=== PATIENT | male | born 1950 | race Caucasian/White ===

== ENCOUNTER 2016-06-22 14:14 | Observation (INO) | payer MEDICARE ==
[~2016-06-22 14:14] MED LIST: AMLO5TAB2 PO; AMLO5TAB22 PO; ASPI81 CHEW; ASPI81CH CHEW; HYDR-2768 PO; HYDR25TA5 PO; LEVI20TA PO; LORA-474 PO; LORA10TA PO; MULT-65 PO; MULTTAB67 PO; PRAV20 PO; PRAV20TA2 PO; WAL-10TA2 PO; WELL200T PO
[2016-06-22 14:18] VITALS: BP 148/84; PULSE 65; RESP 12; TEMP 98.6; O2SAT 65; O2SAT 95
[2016-06-22 15:30] VITALS: RESP 16; O2SAT 94
[2016-06-22] MEDS ORDERED: ASPIRIN 81 MG CHEW TAB PO ONE (15:30)
[2016-06-22] MEDS ORDERED: SODIUM CHLORIDE 0.9% FLUSH 5 ML FLUSH IVF PRN (15:30)
[2016-06-22 16:01] LABS: AUTOMATED NEUTROPHIL # 5.3 TH/MM3 (1.8-7.7); BASOPHIL # 0.1 TH/MM3 (0-0.2); BASOPHIL % 0.6 % (0.0-2.0); EOSINOPHIL # 0.7 TH/MM3 (0-0.4); EOSINOPHIL % 7.2 % (0.0-4.0); HEMATOCRIT 43.9 % (39.0-51.0); HEMO FLAGS DIFF FINAL; LYMPH % 24.8 % (9.0-44.0); LYMPHOCYTE # 2.3 TH/MM3 (1.0-4.8); MEAN CELL VOLUME 88.8 FL (80.0-100.0); MEAN CORPUSCULAR HGB CONC 33.8 % (32.0-36.0); MONO % 9.3 % (0.0-8.0); NEUT % 58.1 % (16.0-70.0); PLATELET COUNT 251 TH/MM3 (150-450); RED BLOOD COUNT 4.95 MIL/MM3 (4.50-5.90); RED CELL DISTRIBUTION WIDTH 14.3 % (11.6-17.2); WHITE BLOOD COUNT 9.1 TH/MM3 (4.0-11.0)
--- NOTE | 2016-06-22 16:07 | RADRPT ---
EXAM DATE/TIME: 06/22/2016 15:26 [facility] COMPARISON: No previous studies available for comparison. INDICATIONS : Chest pain. MEDICAL HISTORY : Hypertension. SURGICAL HISTORY : None. ENCOUNTER: Initial ACUITY: 2 months PAIN SCORE: 8/10 LOCATION: Bilateral chest FINDINGS: A single view of the chest demonstrates the lungs to be symmetrically aerated without evidence of mas s, infiltrate or effusion. The cardiomediastinal contours are unremarkable. Osseous structures are intact. CONCLUSION: No acute disease. Timur Hwang MD on June 22, 2016 at 16:05 Board Certified Radiologist. This report was verified electronically.
[2016-06-22 16:10] LABS: APTT (PATIENT) 24.8 SEC (24.3-30.1); INTERNATIONAL NORMALIZED RATIO 0.9 RATIO
[2016-06-22 16:17] VITALS: BP 143/65; PULSE 60; RESP 18; O2SAT 98
[2016-06-22 16:26] LABS: ANION GAP 8 MEQ/L (5-15); BICARBONATE 26.7 MEQ/L (21.0-32.0); BLOOD UREA NITROGEN 20 MG/DL (7-18); CHLORIDE 104 MEQ/L (98-107); GLOMERULAR FILTRATION RATE 80 ML/MIN (>89); MAGNESIUM 2.4 MG/DL (1.5-2.5); POTASSIUM 3.8 MEQ/L (3.5-5.1); SODIUM (NA) 139 MEQ/L (136-145)
[2016-06-22 16:31] LABS: CREATINE KINASE 133 U/L (39-308)
[2016-06-22 16:43] LABS: CKMB 2.3 NG/ML (0.5-3.6)
--- NOTE | 2016-06-22 17:07 | PD ---
HPI Chief Complaint: Chest Pain Time Seen by Provider: 15:05 Travel History International Travel<30 days: No Contact w/Intl Traveler<30days: No Traveled to known affect area: No History of Present Illness HPI 65-year-old male came to the emergency room with history of chest pain on and off with exertion. He was having chest pain this morning while he was mowing his lawn. He went to see his primary care and they sent him to the emergency rule out heart attack. Currently patient is pain-free. Patient says the pain gets better at rest. No history of vomiting. Vital signs were stable. Patient has history of hypertension. [facility] Past Medical History Narrative Medical List of his past medical history as reviewed from the nursing note. High Cholesterol: Yes Hypertension: Yes Sleep Apnea: Yes Tetanus Vaccination: < 5 Years Influenza Vaccination: Yes Past Surgical History Surgical History: No Previous Surgery Social History Alcohol Use: Yes (SOCIAL) Tobacco Use: Yes (CIGAR, PIPE) Substance Use: No Allergies-Medications (Allergen,Severity, Reaction): Coded Allergies: No Known Allergies (Verified , 06/22/16) Comments No known drug allergies. Reported Meds & Prescriptions Reported Meds & Active Scripts Active Reported Wellbutrin SR 12 HR (Bupropion HCl) 200 Mg Tab 200 Mg PO BID Multiple Vitamin 1 Tab 1 Tab PO DAILY Loratadine 10 Mg Tab 10 Mg PO DAILY Aspirin 81 Mg Chew 81 Mg CHEW DAILY Levitra (Vardenafil) 20 Mg Tab 20 Mg PO DAILY PRN Pravastatin 20 Mg Tab 1 Tab PO DAILY Ativan (Lorazepam) 1 Mg Tab 1 Mg PO BID PRN Hydrochlorothiazide 25 Mg Tab 25 Mg PO DAILY Amlodipine (Amlodipine Besylate) 5 Mg Tab 1 Tab PO DAILY Narrative Medication List of his home medications reviewed from the nursing note. Review of Systems Except as stated in HPI: all other systems reviewed are Neg Physical Exam Narrative GENERAL: Awake, alert, obese, anxious, no obvious distress SKIN: Warm and dry. HEAD: Atraumatic. Normocephalic. EYES: Pupils equal and round. No scleral icterus. No injection or drainage. ENT: No nasal bleeding or discharge. Mucous membranes pink and moist. NECK: Trachea midline. No JVD. CARDIOVASCULAR: Regular rate and rhythm. No murmur appreciated. RESPIRATORY: No accessory muscle use. Clear to auscultation. Breath sounds equal bilaterally. GASTROINTESTINAL: Abdomen soft, non-tender, nondistended. Hepatic and splenic margins not palpable. MUSCULOSKELETAL: No obvious deformities. No clubbing. No cyanosis. No edema. NEUROLOGICAL: Awake and alert. No obvious cranial nerve deficits. Motor grossly within normal limits. Normal speech. PSYCHIATRIC: Appropriate mood and affect; insight and judgment normal. Data Data Last Documented VS Vital Signs Date Time Temp Pulse Resp B/P Pulse Ox O2 Delivery O2 Flow Rate FiO2 06/22/16 16:17 60 18 143/65 98 Room Air 06/22/16 15:30 2 06/22/16 14:18 98.6 Orders Electrocardiogram (06/22/16 15:18) Basic Metabolic Panel (Bmp) (06/22/16 15:18) Ckmb (Isoenzyme) Profile (06/22/16 15:18) Complete Blood Count With Diff (06/22/16 15:18) Magnesium (Mg) (06/22/16 15:18) Prothrombin Time / Inr (Pt) (06/22/16 15:18) Act Partial Throm Time (Ptt) (06/22/16 15:18) Troponin I (06/22/16 15:18) Chest, Single Ap (06/22/16 15:18) Ecg Monitoring (06/22/16 15:18) Bilateral Bp Monitoring (06/22/16 15:18) Iv Access Insert/Monitor (06/22/16 15:18) Oximetry (06/22/16 15:18) Oxygen Administration (06/22/16 15:18) Aspirin Chew (Aspirin Chew) (06/22/16 15:30) Sodium Chloride 0.9% Flush (Ns Flush) (06/22/16 15:30) CKMB (06/22/16 15:40) CKMB% (06/22/16 15:40) Admit Order (Ed Use Only) (06/22/16 17:23) Labs Laboratory Tests Test 06/22/16 15:40 White Blood Count 9.1 TH/MM3 Red Blood Count 4.95 MIL/MM3 Hemoglobin 14.8 GM/DL Hematocrit 43.9 % Mean Corpuscular Volume 88.8 FL Mean Corpuscular Hemoglobin 30.0 PG Mean Corpuscular Hemoglobin 33.8 % Concent Red Cell Distribution Width 14.3 % Platelet Count 251 TH/MM3 Mean Platelet Volume 7.2 FL Neutrophils (%) (Auto) 58.1 % Lymphocytes (%) (Auto) 24.8 % Monocytes (%) (Auto) 9.3 % Eosinophils (%) (Auto) 7.2 % Basophils (%) (Auto) 0.6 % Neutrophils # (Auto) 5.3 TH/MM3 Lymphocytes # (Auto) 2.3 TH/MM3 Monocytes # (Auto) 0.8 TH/MM3 Eosinophils # (Auto) 0.7 TH/MM3 Basophils # (Auto) 0.1 TH/MM3 CBC Comment DIFF FINAL Differential Comment Prothrombin Time 10.0 SEC Prothromb Time International 0.9 RATIO Ratio Activated Partial 24.8 SEC Thromboplast Time Sodium Level 139 MEQ/L Potassium Level 3.8 MEQ/L Chloride Level 104 MEQ/L Carbon Dioxide Level 26.7 MEQ/L Anion Gap 8 MEQ/L Blood Urea Nitrogen 20 MG/DL Creatinine 0.94 MG/DL Estimat Glomerular Filtration 80 ML/MIN Rate Random Glucose 98 MG/DL Calcium Level 9.1 MG/DL Magnesium Level 2.4 MG/DL Total Creatine Kinase 133 U/L Creatine Kinase MB 2.3 NG/ML Troponin I LESS THAN 0.02 NG/ML B-Type Natriuretic Peptide 4 PG/ML MDM Medical Decision Making Medical Screen Exam Complete: Yes Emergency Medical Condition: Yes Medical Record Reviewed: Yes Interpretation(s) Twelve-lead EKG was reviewed by me. Normal sinus rhythm, left axis deviation, bradycardia, poor R-wave progression, nonspecific ST-T wave changes. Heart rate of 54 bpm. Differential Diagnosis ACS, non-STEMI, stable angina Narrative Course 5:06 PM blood test results of back and within normal limit. I would like to admit this patient given the classic history for stable angina to be ruled out. Procedures EKG Prior to Arrival: Yes Diagnosis Primary Impression: Stable angina Admitting Information Admitting Physician Requests: Observation Scripts Nitroglycerin SL (Nitrostat SL)0.4 Mg Subl0.4 Mg SL Q5M PRN (ANGINA) #30 CAP Prov:Dolly Álvarez MD 06/23/16 Brennon Bateman MD Jun 22, 2016 17:07
[2016-06-22] MEDS ORDERED: SODIUM CHLORIDE 0.9% FLUSH 5 ML FLUSH IV PRN (18:00)
[2016-06-22] MEDS ORDERED: NITROGLYCERIN 0.4 MG SL 25 TABS/BTL SL PRN (18:00)
--- NOTE | 2016-06-22 18:41 | HHI.HP ---
cc: Jose G Patel Jr., MD [facility] Service [facility] Primary Care Physician Jose G Patel MD Admission Diagnosis chest pain, r/o ACS Diagnoses: Chief Complaint: chest pain Travel History International Travel<30 Days: No Contact w/Intl Traveler <30 Da: No Traveled to Known Affected Are: No History of Present Illness 65-year-old male with history of HTN, HLD, tobacco use, LAMONTE on CPAP, depression , presents with a one-month history of recurrent chest pains. Patient reports over the past month he has been noticing chest pressure located throughout the entire anterior chest without radiation, associated with shortness of breath, no nausea/vomiting/diaphoresis. He experiences the chest pain only with exertion, and has quick recovery with rest after a few minutes. His last episode of chest pain was this morning around 11am while mowing the lawn, recovered after a few minutes of rest. He has not taken any medications for the pain and does not have any nitroglycerin at home (patient also takes Levitra prn erectile dysfunction however last use was 6-8months ago). The patient does report some chronic lower extremity edema, takes HCTZ. Denies any orthopnea or paroxysmal nocturnal dyspnea. Denies cough, fevers, chills. He has a hx of stress test in 2004 that was reportedly unremarkable. He saw his PCP Dr. Patel today who recommended the patient come to the ER for admission to the chest pain center. ER physician admitted to hospitalist instead of chest pain center due to classic stable angina requesting cardiology consult. Initial troponin negative and EKG with sinus bradycardia, left axis deviation, poor R wave progression, nonspecific T wave changes. He will be admitted to observation with cardiology consult. Review of Systems Constitutional: DENIES: Diaphoretic episodes, Fever, Chills, Dizziness Endocrine: DENIES: Polydipsia, Polyuria, Polyphagia Eyes: DENIES: Blurred vision, Vision loss, Double Vision Ears, nose, mouth, throat: DENIES: Throat pain, Ear Pain, Odynophagia Respiratory: COMPLAINS OF: Shortness of breath, DENIES: Cough, Sputum production Cardiovascular: COMPLAINS OF: Chest pain, Dyspnea on Exertion, Lower Extremity Edema, DENIES: Palpitations, Syncope, PND, Orthopnea Gastrointestinal: DENIES: Abdominal pain, Constipation, Diarrhea, Nausea, Vomiting Genitourinary: DENIES: Urinary frequency, Urgency, Dysuria Musculoskeletal: DENIES: Joint pain, Back pain, Neck pain Integumentary: DENIES: Pruritus, Rash Hematologic/lymphatic: DENIES: Bruising, Lymphadenopathy Immunologic/allergic: DENIES: Eczema, Urticaria Neurologic: DENIES: Abnormal gait, Headache, Localized weakness, Paresthesias Psychiatric: DENIES: Anxiety, Depression Past Family Social History Past Medical History HTN HLD LAMONTE on CPAP depression anxiety Past Surgical History Denies any prior surgeries. Reported Medications Wellbutrin SR 12 HR (Bupropion HCl) 200 Mg Tab 200 Mg PO BID Multiple Vitamin 1 Tab 1 Tab PO DAILY Loratadine 10 Mg Tab 10 Mg PO DAILY Aspirin 81 Mg Chew 81 Mg CHEW DAILY Levitra (Vardenafil) 20 Mg Tab 20 Mg PO DAILY PRN (LAST USE 6-8MONTHS AGO) Pravastatin 20 Mg Tab 1 Tab PO DAILY Ativan (Lorazepam) 1 Mg Tab 1 Mg PO BID PRN Hydrochlorothiazide 25 Mg Tab 25 Mg PO DAILY Amlodipine (Amlodipine Besylate) 5 Mg Tab 1 Tab PO DAILY Allergies: Coded Allergies: No Known Allergies (Verified , 06/22/16) Active Ordered Medications Current Medications Medications (Trade) Dose Ordered Sig/Sergio Route Start Time Stop Time Status Last Admin (NS Flush) 2 ml UNSCH PRN IVF 06/22/16 15:30 (NS Flush) 2 ml BID IV 06/22/16 21:00 UNV (NS Flush) 2 ml UNSCH PRN IV 06/22/16 18:00 UNV (Nitrostat Sl) 0.4 mg Q5M PRN SL 06/22/16 18:00 UNV (Morphine Inj) 2 mg Q2H PRN IV 06/22/16 18:00 UNV (Heparin Inj) 5,000 units Q8H SQ 06/22/16 18:00 UNV (Ecotrin Ec) 81 mg DAILY PO 06/23/16 09:00 UNV (Wellbutrin Sr 12 Hr) 200 mg BID PO 06/22/16 21:00 UNV (Hydrodiuril) 25 mg DAILY PO 06/23/16 09:00 UNV (Claritin) 10 mg DAILY PO 06/23/16 09:00 UNV (Ativan) 1 mg BID PRN PO 06/22/16 18:00 UNV (Theragran) 1 tab DAILY PO 06/23/16 09:00 UNV (Pravachol) 20 mg DAILY PO 06/23/16 09:00 06/22/16 21:00 UNV (Norvasc) 5 mg HS PO 06/22/16 21:00 UNV (Pravachol) 20 mg HS PO 06/22/16 21:00 UNV Family History Father with CABG around age 70-75 Mother with cancer, COPD, thyroid disease Social History Smokes 1 pipe of tobacco daily since age 17, occasional cigar use Drinks 1 cocktail per week Denies illicit drug use Physical Exam Vital Signs Vital Signs Date Time Temp Pulse Resp B/P Pulse Ox O2 Delivery O2 Flow Rate FiO2 06/22/16 16:17 60 18 143/65 98 Room Air 06/22/16 15:30 16 94 Nasal Cannula 2 06/22/16 15:30 94 Nasal Cannula 2 06/22/16 15:22 57 18 94 Room Air 06/22/16 14:18 98.6 65 12 148/84 95 Room Air Physical Exam GENERAL: Well-nourished, well-developed very pleasant middle aged male patient in [facility]. SKIN: Warm and dry. No rash. HEAD: Normocephalic. Atraumatic. EYES: Pupils equal and round. No scleral icterus. No injection or drainage. ENT: No nasal bleeding or discharge. Mucous membranes pink and moist. NECK: Supple. Trachea midline. CARDIOVASCULAR: Regular rate and rhythm. S1, S2 noted. No murmur appreciated. RESPIRATORY: No accessory muscle use. Clear to auscultation. Breath sounds equal bilaterally. GASTROINTESTINAL: Abdomen soft, non-tender, nondistended. Normoactive bowel sounds x4. MUSCULOSKELETAL: No obvious deformities. 1+ bilateral lower extremity edema. NEUROLOGICAL: Awake and alert. No obvious cranial nerve deficits. Motor grossly within normal limits. 5/5 muscle strength in bilateral upper and lower extremities. Normal speech. PSYCHIATRIC: Appropriate mood and affect; insight and judgment normal. Laboratory Laboratory Tests Test 06/22/16 15:40 White Blood Count 9.1 Red Blood Count 4.95 Hemoglobin 14.8 Hematocrit 43.9 Mean Corpuscular Volume 88.8 Mean Corpuscular Hemoglobin 30.0 Mean Corpuscular Hemoglobin 33.8 Concent Red Cell Distribution Width 14.3 Platelet Count 251 Mean Platelet Volume 7.2 Neutrophils (%) (Auto) 58.1 Lymphocytes (%) (Auto) 24.8 Monocytes (%) (Auto) 9.3 Eosinophils (%) (Auto) 7.2 Basophils (%) (Auto) 0.6 Neutrophils # (Auto) 5.3 Lymphocytes # (Auto) 2.3 Monocytes # (Auto) 0.8 Eosinophils # (Auto) 0.7 Basophils # (Auto) 0.1 CBC Comment DIFF FINAL Differential Comment Prothrombin Time 10.0 Prothromb Time International 0.9 Ratio Activated Partial 24.8 Thromboplast Time Sodium Level 139 Potassium Level 3.8 Chloride Level 104 Carbon Dioxide Level 26.7 Anion Gap 8 Blood Urea Nitrogen 20 Creatinine 0.94 Estimat Glomerular Filtration 80 Rate Random Glucose 98 Calcium Level 9.1 Magnesium Level 2.4 Total Creatine Kinase 133 Creatine Kinase MB 2.3 Troponin I LESS THAN 0.02 Result Diagram: 06/22/16 1540 06/22/16 1540 Imaging Last Impressions Chest X-Ray 06/22/16 1518 Signed Impressions: Service Date/Time: Wednesday, June 22, 2016 15:26 - CONCLUSION: No acute disease. Timur Hwang MD Assessment and Plan Problem List: (1) Stable angina ICD Code: I20.8 Status: Acute (2) Hypertension ICD Code: I10 Status: Chronic (3) Hyperlipidemia ICD Code: E78.5 Status: Chronic (4) Obesity ICD Code: E66.9 Status: Chronic (5) Depression ICD Code: F32.9 Status: Chronic (6) Smoker ICD Code: F17.200 Status: Chronic Assessment and Plan 65-year-old male with history of HTN, HLD, tobacco use, LAMONTE on CPAP, depression , presents with a one-month history of recurrent chest pains. He saw his PCP Dr. Patel today who recommended the patient come to the ER for admission to the chest pain center. ER physician admitted to hospitalist instead of chest pain center due to classic stable angina, requesting cardiology consult. Stable Angina: patient's symptoms classic for stable angina, chest pressure/SOB only with exertion, relieved by rest; risk factors with HTN/HLD/tobacco use/ family hx. CXR images reviewed by me, unremarkable. Initial troponin negative and EKG with nonspecific T wave changes. Continue to rule out ACS with serial cardiac enzymes and EKG. Given Aspirin in ER. Nitro and IV morphine prn chest pain. Heparin SQ. Unable to have BB due to bradycardia. Consult cardiology. Keep NPO after midnight for likely stress test vs cath in the am. Lower Extremity Edema: suspect dependent edema however with SOB as above, will check BNP. No calf pain. Continue patient's diuretic HCTZ. HTN: chronic, continue patient's Norvasc 5mg hs and HCTZ 25mg qd. Monitor BP, adjust antihypertensives as needed. HLD: chronic, continue patient's statin hs. Check lipid panel in am. LAMONTE on CPAP: patient may continue CPAP. Depression/Anxiety: chronic, continue patient's Wellbutrin bid and Ativan prn. Tobacco Use: patient smokes tobacco via pipe daily [id number]. Counseled on cessation. Avoid vasoconstriction with nicotine patch secondary to chest pain as above. DVT Prophylaxis: teds/SCDs, heparin sq Written by Caryn Noyola, acting as scribe for Dr. Álvarez on 06/22/16 at 18:39. The documentation accurately reflects the work performed [id number] by me Dr. Álvarez on 06/22/16 at 18:39. Code Status Full Code Discussed Condition With Patient, ER Caryn Bell PA-C Jun 22, 2016 18:41 Dolly Álvarez MD Jun 22, 2016 19:42
[2016-06-22] MEDS ORDERED: ONDANSETRON HCL 4 MG/2 ML VIAL IVP PRN (19:00)
[2016-06-22] MEDS ORDERED: ACETAMINOPHEN 325 MG TAB PO PRN (19:00)
[2016-06-22] MEDS ORDERED: MAGNESIUM HYDROXIDE SUSP 30 ML CUP PO PRN (19:00)
[2016-06-22] MEDS ORDERED: DOCUSATE SODIUM 100 MG CAP PO PRN (19:00)
[2016-06-22] MEDS ORDERED: MORPHINE SULFATE 4 MG/ML INJ IV PRN (19:00)
[2016-06-22] MEDS ORDERED: LORazepam 1 MG TAB PO PRN (19:00)
[2016-06-22 19:21] VITALS: BP 145/68; PULSE 60; RESP 18; O2SAT 99
[2016-06-22] MEDS: SODIUM CHLORIDE 0.9% FLUSH 5 ML FLUSH IV SCH (21:00)
[2016-06-22] MEDS: PRAVASTATIN SOD 20 MG TAB PO SCH (21:30)
[2016-06-22] MEDS: amLODIPine BESYLATE 5 MG TAB PO SCH (21:30)
[2016-06-22] MEDS: HEPARIN SODIUM - SQ 10,000 UNITS/ML VIAL SQ SCH (21:31)
[2016-06-22] MEDS: buPROPion HCL 100 MG SUSTAINED RELEASE TAB PO SCH (22:50)
[2016-06-22 23:28] LABS: CREATINE KINASE 120 U/L (39-308)
[2016-06-23] VITALS (9 sets, daily range): BP systolic 124–138; BP diastolic 57–73; PULSE 52–61; RESP 16–20; TEMP 97.9–98.4; O2SAT 93–97
[2016-06-23] MEDS: HEPARIN SODIUM - SQ 10,000 UNITS/ML VIAL SQ SCH ×3 (03:35→22:36)
[2016-06-23 03:40] LABS: AUTOMATED NEUTROPHIL # 4.8 TH/MM3 (1.8-7.7); BASOPHIL % 0.4 % (0.0-2.0); EOSINOPHIL # 0.6 TH/MM3 (0-0.4); EOSINOPHIL % 7.3 % (0.0-4.0); HEMATOCRIT 41.9 % (39.0-51.0); HEMO FLAGS DIFF FINAL; LYMPH % 26.3 % (9.0-44.0); LYMPHOCYTE # 2.3 TH/MM3 (1.0-4.8); MEAN CELL VOLUME 89.5 FL (80.0-100.0); MEAN CORPUSCULAR HGB CONC 33.5 % (32.0-36.0); MONO % 10.5 % (0.0-8.0); NEUT % 55.5 % (16.0-70.0); PLATELET COUNT 221 TH/MM3 (150-450); RED BLOOD COUNT 4.68 MIL/MM3 (4.50-5.90); RED CELL DISTRIBUTION WIDTH 14.5 % (11.6-17.2); WHITE BLOOD COUNT 8.6 TH/MM3 (4.0-11.0)
[2016-06-23 04:10] LABS: ANION GAP 5 MEQ/L (5-15); BICARBONATE 31.6 MEQ/L (21.0-32.0); BLOOD UREA NITROGEN 24 MG/DL (7-18); CHLORIDE 104 MEQ/L (98-107); GLOMERULAR FILTRATION RATE 72 ML/MIN (>89); SODIUM (NA) 141 MEQ/L (136-145)
[2016-06-23 04:13] LABS: CREATINE KINASE 113 U/L (39-308); HDL CHOLESTEROL 48.2 MG/DL (40.0-60.0); LDL CHOLESTEROL 75 MG/DL (0-99)
--- NOTE | 2016-06-23 08:15 | HHI.PR ---
Subjective Remarks Trops neg. Says he would rather go for exercise stress test as he can walk. No chest pain overnight however the patient says chest pain is with exertion. No diaphoresis, nausea, lightheadedness. Patient also has a cardiac murmur and he has LE edema. Will check 2 D ECHO. Objective Vitals Vital Signs Date Time Temp Pulse Resp B/P Pulse Ox O2 Delivery O2 Flow Rate FiO2 06/23/16 05:35 95 21 06/23/16 04:00 58 16 132/62 96 Nasal Cannula 2 06/23/16 00:00 61 16 124/57 97 06/22/16 19:21 60 18 145/68 99 Room Air 06/22/16 16:17 60 18 143/65 98 Room Air 06/22/16 15:30 16 94 Nasal Cannula 2 06/22/16 15:30 94 Nasal Cannula 2 06/22/16 15:22 57 18 94 Room Air 06/22/16 14:18 98.6 65 12 148/84 95 Room Air Result Diagram: 06/23/16 0325 06/23/16 0325 Imaging Last Impressions Chest X-Ray 06/22/16 1518 Signed Impressions: Service Date/Time: Wednesday, June 22, 2016 15:26 - CONCLUSION: No acute disease. Timur Hwang MD Objective Remarks GENERAL: Well-nourished, well-developed very pleasant middle aged male patient in [facility]. SKIN: Warm and dry. No rash. HEAD: Normocephalic. Atraumatic. EYES: Pupils equal and round. No scleral icterus. No injection or drainage. ENT: No nasal bleeding or discharge. Mucous membranes pink and moist. NECK: Supple. Trachea midline. CARDIOVASCULAR: Regular rate and rhythm. S1, S2 noted. Patient also has a cardiac murmur and he has LE edema. RESPIRATORY: No accessory muscle use. Clear to auscultation. Breath sounds equal bilaterally. GASTROINTESTINAL: Abdomen soft, non-tender, nondistended. Normoactive bowel sounds x4. MUSCULOSKELETAL: No obvious deformities. 1+ bilateral lower extremity edema. NEUROLOGICAL: Awake and alert. No obvious cranial nerve deficits. Motor grossly within normal limits. 5/5 muscle strength in bilateral upper and lower extremities. Normal speech. PSYCHIATRIC: Appropriate mood and affect; insight and judgment normal. A/P Problem List: (1) Stable angina ICD Code: I20.8 Status: Acute (2) Hypertension ICD Code: I10 Status: Chronic (3) Hyperlipidemia ICD Code: E78.5 Status: Chronic (4) Obesity ICD Code: E66.9 Status: Chronic (5) Depression ICD Code: F32.9 Status: Chronic (6) Smoker ICD Code: F17.200 Status: Chronic Assessment and Plan 65-year-old male with history of HTN, HLD, tobacco use, LAMONTE on CPAP, depression , presents with a one-month history of recurrent chest pains. He saw his PCP Dr. Patel today who recommended the patient come to the ER for admission to the chest pain center. ER physician admitted to hospitalist instead of chest pain center due to classic stable angina, requesting cardiology consult. Stable Angina: patient's symptoms classic for stable angina, chest pressure/SOB only with exertion, relieved by rest; risk factors with HTN/HLD/tobacco use/ family hx. CXR images reviewed by me, unremarkable. Initial troponin negative and EKG with nonspecific T wave changes. Continue to rule out ACS with serial cardiac enzymes and EKG. Given Aspirin in ER. Nitro and IV morphine prn chest pain. Heparin SQ. Unable to have BB due to bradycardia. Consult cardiology. Keep NPO after midnight for likely stress test vs cath in the am. Patient also has a cardiac murmur and he has LE edema. Will check 2 D ECHO. Also check CTA to r/o PE per Dr Khan cards. Plan for stress test if CTA neg for PE Trops neg x3 no change in EKG. Patient says he would rather have exercise stress test. Lower Extremity Edema: suspect dependent edema however with SOB as above, will check BNP. No calf pain. Continue patient's diuretic HCTZ. HTN: chronic, continue patient's Norvasc 5mg hs and HCTZ 25mg qd. Monitor BP, adjust antihypertensives as needed. HLD: chronic, continue patient's statin hs. Check lipid panel in am. LAMONTE on CPAP: patient may continue CPAP. Depression/Anxiety: chronic, continue patient's Wellbutrin bid and Ativan prn. Tobacco Use: patient smokes tobacco via pipe daily [id number]. Counseled on cessation. Avoid vasoconstriction with nicotine patch secondary to chest pain as above. DVT Prophylaxis: teds/SCDs, heparin sq Code Status Full Code Discussed Condition With Patient, nurse Dolly Álvarez MD Jun 23, 2016 08:14
[2016-06-23] MEDS ORDERED: ASPIRIN 81 MG CHEW TAB CHEW SCH (09:00)
[2016-06-23] MEDS: LORATADINE 10 MG TAB PO SCH (09:00)
[2016-06-23] MEDS: buPROPion HCL 100 MG SUSTAINED RELEASE TAB PO SCH ×2 (09:00→22:37)
[2016-06-23] MEDS: MULTIVITAMIN TAB PO SCH (09:00)
[2016-06-23] MEDS ORDERED: amLODIPine BESYLATE 5 MG TAB PO SCH (09:00)
[2016-06-23] MEDS ORDERED: PRAVASTATIN SOD 20 MG TAB PO SCH (09:00)
[2016-06-23] MEDS: HYDROCHLOROTHIAZIDE 25 MG TAB PO SCH (09:18)
--- NOTE | 2016-06-23 11:15 | EKG ---
Date Performed: 06/23/2016 Time Performed: 03:55:16 PTAGE: 65 years EKG: SINUS BRADYCARDIA BORDERLINE ECG PREVIOUS TRACING : 06/22/2016 22.58 Compared to prior tracing no significant change DOCTOR: Rio Mera Interpretating Date/Time 06/23/2016 11:15:06
[2016-06-23] MEDS: ASPIRIN EC 81 MG TABEC PO SCH (11:59)
[2016-06-23] MEDS: SODIUM CHLORIDE 0.9% FLUSH 5 ML FLUSH IV SCH ×2 (12:00→22:37)
[2016-06-23] MEDS: ACETAMINOPHEN/HYDROcodone 325 MG/5 MG TAB PO PRN ×2 (14:08→22:45)
[2016-06-23] MEDS ORDERED: IOHEXOL 350 MG/ML 10 ML VIAL (for RAD DIAG) IV ONE ×2 (15:26→16:02)
--- NOTE | 2016-06-23 15:51 | RADRPT ---
EXAM DATE/TIME: 06/23/2016 15:22 [facility] COMPARISON: No previous studies available for comparison. INDICATIONS : Chest pain with exertion IV CONTRAST: 70 cc Omnipaque 350 (iohexol) IV RADIATION DOSE: 23.39 CTDIvol (mGy) MEDICAL HISTORY : Hypertension. SURGICAL HISTORY : None. ENCOUNTER: Initial ACUITY: 1 day PAIN SCALE: 5/10 LOCATION: chest TECHNIQUE: Volumetric scanning of the chest was performed using a pulmonary embolism protocol MIP images were re constructed. Using automated exposure control and adjustment of the mA and/or kV according to patien t size, radiation dose was kept as low as reasonably achievable to obtain optimal diagnostic quality images. FINDINGS: PULMONARY ARTERIES: No filling defects are seen in the pulmonary arteries through the segmental level. LUNGS: Minimal posterior bibasilar atelectasis is noted. There is no consolidation or pneumothorax . No con cerning pulmonary nodule is visualized. PLEURAE: There is no pleural thickening or pleural effusion. MEDIASTINUM: There is good visualization of the great vessels of the middle mediastinum. No evidence of mediastin al or hilar adenopathy/mass. Cardiomegaly is noted. Coronary artery calcifications are noted. MUSCULOSKELETAL: Within normal limits for patient age. MISCELLANEOUS: The visualized upper abdominal organs demonstrate no acute abnormality. There is a 12 mm low density lesion within the right lobe of the liver which is too small for accurate density measurement. CONCLUSION: 1. No evidence of pulmonary embolism. 2. Cardiomegaly and coronary artery calcification. 3. Minimal posterior bibasilar atelectasis. 4. 12 mm low density lesion within the right lobe of the liver which is too small for accurate densit y measurement. Antonio Luna MD on June 23, 2016 at 15:44 Board Certified Radiologist. This report was verified electronically.
[2016-06-23] MEDS ORDERED: NITR0.4S SL (16:25)
--- NOTE | 2016-06-23 16:25 | HHI.DCPOC ---
Discharge Care Plan Goals to Promote Your Health * To prevent worsening of your condition and complications * To maintain your health at the optimal level Directions to Meet Your Goals Take your medications as prescribed Follow your dietary instruction Follow activity as directed Keep your appointments as scheduled Take your immunizations and boosters as scheduled If your symptoms worsen call your PCP, if no PCP go to Urgent Care Center or Emergency Room Smoking is Dangerous to Your Health. Avoid second hand smoke Call the 24-hour hour crisis hotline for domestic abuse at Dolly Álvarez MD Jun 23, 2016 16:25
--- NOTE | 2016-06-23 17:15 | MB ---
cc: RIC LEHMAN M.D. DATE OF CONSULTATION: 06/23/2016 REASON FOR CONSULTATION: HISTORY OF PRESENT ILLNESS: Gary is a very pleasant 65-year-old gentleman referred to the emergency room by his primary doctor due to chest pain occurring while mowing the lawn. His also notes that he has been diagnosed with a heart murmur recently. Also his nurse notes that while off oxygen he has been de-sating 89 to 90% on room air. His chest x-ray was clear. Cardiac enzymes are negative. EKG shows some nonspecific abnormality, ST-T waves in the inferior leads. Currently he is comfortable in no acute distress. Denies any resting chest pain, fever, chills, cough, GI/ bleeding, numbness or dizziness. Past medical history: Per history of present illness. History of hyperlipidemia, hypertension, sleep apnea. SOCIAL HISTORY He does drink alcohol socially. He smokes a cigar and pipe. ALLERGIES: NONE. MEDICATIONS 1. Aspirin 81 mg daily. 2. HCTZ 25 daily. 3. Cardizem 10 milligrams daily. 4. Multivitamins. 5. Amlodipine 5 milligrams hs. 6. Pravastatin 20 hs. 7. Heparin 5000 subcu q8 hours. PHYSICAL EXAMINATION: VITAL SIGNS: Blood pressure 129/67, pulse 55, respiratory rate 18, temperature 98.0. GENERAL: He is alert, oriented x3, in no acute distress. NECK: Supple. No JVD. No bruits. CARDIOVASCULAR: S1-S2. No murmurs, rubs, or gallops. LUNGS: Clear to auscultation bilaterally. ABDOMEN: Soft, nontender, nondistended. Positive bowel sounds. EXTREMITIES: No lower extremity edema. LABORATORY DATA: White count 8.6, hemoglobin 14.0, hematocrit 41.9, platelet count 221. Sodium 141, potassium 4.0, chloride 104, bicarb 31.6, BUN 24, creatinine 1.3. Troponin is less than 0.02 x3. BNP is 4. LDL 75, HDL 48. INR is 0.9. Chest x-ray "No acute disease." EKG: Normal sinus rhythm, Q-wave in lead aVF. Left axis deviation, T-wave inversion in lead 3, flat T-wave in lead aVF, sinus bradycardia at 54. FINAL DIAGNOSIS: 1. [place] [employer] class II angina. 2. Hypoxia 3. Abnormal EKG. 4. Tobacco use. 5. Hyperlipidemia. 6. Hyperglycemia. 7. Hypertension. DISCUSSION At this point in time the patient has unexplained hypoxia. Given his symptoms, I do think PE should be ruled out, therefore, I have ordered CT of the chest. If this is negative for any significant findings, based on his EKG, will proceed with plain exercise treadmill chest. If the patient cannot achieve target heart rate, then we would obviously need to do nuclear stress test. I have discussed this in detail with the patient and his . They are in agreement. Otherwise recommend aspirin, statin, Amlodipine, HCTZ. Will also follow up 2-D echo results. MD DAE Mendieta/CRISTINE /3:03 PM /4:41 PM
--- NOTE | 2016-06-23 22:31 | EKG ---
Date Performed: 06/22/2016 Time Performed: 22:58:48 PTAGE: 65 years EKG: SINUS BRADYCARDIA INFERIOR MYOCARDIAL INFARCTION ABNORMAL ECG PREVIOUS TRACING : 06/22/2016 15.23 Compared to prior tracing no significant change DOCTOR: Rio Mera Interpretating Date/Time 06/23/2016 22:28:28
[2016-06-23] MEDS: PRAVASTATIN SOD 20 MG TAB PO SCH (22:37)
[2016-06-23] MEDS: amLODIPine BESYLATE 5 MG TAB PO SCH (22:37)
--- NOTE | 2016-06-23 22:43 | EKG ---
Date Performed: 06/22/2016 Time Performed: 15:23:13 PTAGE: 65 years EKG: SINUS BRADYCARDIA BORDERLINE ECG NO PREVIOUS TRACING DOCTOR: Rio Mera Interpretating Date/Time 06/23/2016 22:39:46
[2016-06-24 03:27] VITALS: BP 123/61; RESP 20; TEMP 98.7; O2SAT 96
[2016-06-24] MEDS: HEPARIN SODIUM - SQ 10,000 UNITS/ML VIAL SQ SCH ×2 (05:11→12:00)
[2016-06-24 07:33] VITALS: BP 146/71; PULSE 57; RESP 18; TEMP 97.8; O2SAT 94
[2016-06-24 08:00] VITALS: PULSE 55
[2016-06-24] MEDS: HYDROCHLOROTHIAZIDE 25 MG TAB PO SCH (08:28)
[2016-06-24] MEDS: MULTIVITAMIN TAB PO SCH (08:28)
[2016-06-24] MEDS: ASPIRIN EC 81 MG TABEC PO SCH (08:29)
[2016-06-24] MEDS: buPROPion HCL 100 MG SUSTAINED RELEASE TAB PO SCH (08:29)
[2016-06-24] MEDS: LORATADINE 10 MG TAB PO SCH (08:29)
[2016-06-24] MEDS: SODIUM CHLORIDE 0.9% FLUSH 5 ML FLUSH IV SCH (08:29)
[2016-06-24 11:38] VITALS: BP 132/76; PULSE 57; RESP 18; TEMP 97.6; O2SAT 96
--- NOTE | 2016-06-24 13:47 | HHI.PR ---
Subjective Remarks Patient in the chair. Denies having any chest pain. No nausea, vomiting, diarrhea or constipation. Patient/ at bedside wants to have Dr Huffman cardiology. Discussed with Dr Khan cardiology and will consult Dr Huffman for further recommendations. Objective Vitals Vital Signs Date Time Temp Pulse Resp B/P Pulse Ox O2 Delivery O2 Flow Rate FiO2 06/24/16 11:38 97.6 57 18 132/76 96 06/24/16 08:00 55 06/24/16 07:33 97.8 57 18 146/71 94 06/24/16 03:27 98.7 20 123/61 96 06/23/16 23:51 52 06/23/16 23:50 22 06/23/16 23:33 98.4 57 16 129/72 96 06/23/16 20:06 98.4 59 20 138/68 96 06/23/16 16:40 97.9 54 18 134/73 95 Result Diagram: 06/23/16 0325 06/23/16 [address] Angiography 06/23/16 0000 Signed Impressions: Service Date/Time: Thursday, June 23, 2016 15:22 - CONCLUSION: 1. No evidence of pulmonary embolism. 2. Cardiomegaly and coronary artery calcification. 3. Minimal posterior bibasilar atelectasis. 4. 12 mm low density lesion within the right lobe of the liver which is too small for accurate density measurement. Antonio Luna MD Chest X-Ray 06/22/16 1518 Signed Impressions: Service Date/Time: Wednesday, June 22, 2016 15:26 - CONCLUSION: No acute disease. Timur Hwang MD Objective Remarks GENERAL: Well-nourished, well-developed very pleasant middle aged male patient in [facility]. SKIN: Warm and dry. No rash. HEAD: Normocephalic. Atraumatic. EYES: Pupils equal and round. No scleral icterus. No injection or drainage. ENT: No nasal bleeding or discharge. Mucous membranes pink and moist. NECK: Supple. Trachea midline. CARDIOVASCULAR: Regular rate and rhythm. S1, S2 noted. Patient also has a cardiac murmur and he has LE edema. RESPIRATORY: No accessory muscle use. Clear to auscultation. Breath sounds equal bilaterally. GASTROINTESTINAL: Abdomen soft, non-tender, nondistended. Normoactive bowel sounds x4. MUSCULOSKELETAL: No obvious deformities. 1+ bilateral lower extremity edema. NEUROLOGICAL: Awake and alert. No obvious cranial nerve deficits. Motor grossly within normal limits. 5/5 muscle strength in bilateral upper and lower extremities. Normal speech. PSYCHIATRIC: Appropriate mood and affect; insight and judgment normal. A/P Problem List: (1) Stable angina ICD Code: I20.8 Status: Acute (2) Hypertension ICD Code: I10 Status: Chronic (3) Hyperlipidemia ICD Code: E78.5 Status: Chronic (4) Obesity ICD Code: E66.9 Status: Chronic (5) Depression ICD Code: F32.9 Status: Chronic (6) Smoker ICD Code: F17.200 Status: Chronic Assessment and Plan 65-year-old male with history of HTN, HLD, tobacco use, LAMONTE on CPAP, depression , presents with a one-month history of recurrent chest pains. He saw his PCP Dr. Patel today who recommended the patient come to the ER for admission to the chest pain center. ER physician admitted to hospitalist instead of chest pain center due to classic stable angina, requesting cardiology consult. Stable Angina: patient's symptoms classic for stable angina, chest pressure/SOB only with exertion, relieved by rest; risk factors with HTN/HLD/tobacco use/ family hx. CXR images reviewed by me, unremarkable. Initial troponin negative and EKG with nonspecific T wave changes. Continue to rule out ACS with serial cardiac enzymes and EKG. Given Aspirin in ER. Nitro and IV morphine prn chest pain. Heparin SQ. Unable to have BB due to bradycardia. Consult cardiology. Keep NPO after midnight for likely stress test vs cath in the am. Patient also has a cardiac murmur and he has LE edema. Will check 2 D ECHO. Also check CTA to r/o PE per Dr Khan cards. Plan for stress test if CTA neg for PE Trops neg x3 no change in EKG. Patient says he would rather have exercise stress test. Dr Khan recommends eventually nuclear stress test. Patient/family spoke with Dr Patel his PCP and he recommends Dr Huffman cardiology. Patient/ wants Dr Huffman cardiology to be involved on the case. Consult Dr Huffman. Dr Khan was notified. Lower Extremity Edema: suspect dependent edema however with SOB as above, will check BNP. No calf pain. Continue patient's diuretic HCTZ. HTN: chronic, continue patient's Norvasc 5mg hs and HCTZ 25mg qd. Monitor BP, adjust antihypertensives as needed. HLD: chronic, continue patient's statin hs. Check lipid panel in am. LAMONTE on CPAP: patient may continue CPAP. Depression/Anxiety: chronic, continue patient's Wellbutrin bid and Ativan prn. Tobacco Use: patient smokes tobacco via pipe daily [id number]. Counseled on cessation. Avoid vasoconstriction with nicotine patch secondary to chest pain as above. DVT Prophylaxis: teds/SCDs, heparin sq Code Status Full Code Discussed Condition With Patient, nurse Dolly Álvarez MD Jun 24, 2016 13:47
[2016-06-24 15:45] VITALS: BP 136/76; PULSE 60; RESP 18; TEMP 97.4; O2SAT 97
--- NOTE | 2016-06-24 17:47 | HHI.DS ---
Discharge Summary Admission Date Jun 22, 2016 at 17:28 Discharge Date: Jun 24, 2016 Admitting Diagnosis chest pain, r/o ACS (1) Stable angina ICD Code: I20.8 Diagnosis: Principal (2) Hypertension ICD Code: I10 Diagnosis: Secondary (3) Hyperlipidemia ICD Code: E78.5 Diagnosis: Secondary (4) Obesity ICD Code: E66.9 Diagnosis: Secondary (5) Depression ICD Code: F32.9 Diagnosis: Secondary (6) Smoker ICD Code: F17.200 Diagnosis: Secondary Procedures none Brief History - From Admission 65-year-old male with history of HTN, HLD, tobacco use, LAMONTE on CPAP, depression , presents with a one-month history of recurrent chest pains. Patient reports over the past month he has been noticing chest pressure located throughout the entire anterior chest without radiation, associated with shortness of breath, no nausea/vomiting/diaphoresis. He experiences the chest pain only with exertion, and has quick recovery with rest after a few minutes. His last episode of chest pain was this morning around 11am while mowing the lawn, recovered after a few minutes of rest. He has not taken any medications for the pain and does not have any nitroglycerin at home (patient also takes Levitra prn erectile dysfunction however last use was 6-8months ago). The patient does report some chronic lower extremity edema, takes HCTZ. Denies any orthopnea or paroxysmal nocturnal dyspnea. Denies cough, fevers, chills. He has a hx of stress test in 2004 that was reportedly unremarkable. He saw his PCP Dr. Patel today who recommended the patient come to the ER for admission to the chest pain center. ER physician admitted to hospitalist instead of chest pain center due to classic stable angina requesting cardiology consult. Initial troponin negative and EKG with sinus bradycardia, left axis deviation, poor R wave progression, nonspecific T wave changes. He will be admitted to observation with cardiology consult. CBC/BMP: 06/23/16 0325 06/23/16 0325 Significant Findings Laboratory Tests Test 06/22/16 06/22/16 06/23/16 15:40 23:00 03:25 Monocytes (%) (Auto) 9.3 % (0.0-8.0) 10.5 % (0.0-8.0) Eosinophils (%) (Auto) 7.2 % (0.0-4.0) 7.3 % (0.0-4.0) Eosinophils # (Auto) 0.7 TH/MM3 0.6 TH/MM3 (0-0.4) (0-0.4) Blood Urea Nitrogen 20 MG/DL (7-18) 24 MG/DL (7-18) Estimat Glomerular Filtration 80 ML/MIN (>89) 72 ML/MIN (>89) Rate Troponin I LESS THAN 0.02 LESS THAN 0.02 LESS THAN 0.02 NG/ML NG/ML NG/ML (0.02-0.05) (0.02-0.05) (0.02-0.05) Random Glucose 135 MG/DL (74-106) Triglycerides Level 242 MG/DL (42-150) Imaging Last Impressions CT Angiography 06/23/16 0000 Signed Impressions: Service Date/Time: Thursday, June 23, 2016 15:22 - CONCLUSION: 1. No evidence of pulmonary embolism. 2. Cardiomegaly and coronary artery calcification. 3. Minimal posterior bibasilar atelectasis. 4. 12 mm low density lesion within the right lobe of the liver which is too small for accurate density measurement. Antonio Luna MD Chest X-Ray 06/22/16 1518 Signed Impressions: Service Date/Time: Wednesday, June 22, 2016 15:26 - CONCLUSION: No acute disease. Timur Hwang MD PE at Discharge GENERAL: Well-nourished, well-developed very pleasant middle aged male patient in [facility]. SKIN: Warm and dry. No rash. HEAD: Normocephalic. Atraumatic. EYES: Pupils equal and round. No scleral icterus. No injection or drainage. ENT: No nasal bleeding or discharge. Mucous membranes pink and moist. NECK: Supple. Trachea midline. CARDIOVASCULAR: Regular rate and rhythm. S1, S2 noted. Patient also has a cardiac murmur and he has LE edema. RESPIRATORY: No accessory muscle use. Clear to auscultation. Breath sounds equal bilaterally. GASTROINTESTINAL: Abdomen soft, non-tender, nondistended. Normoactive bowel sounds x4. MUSCULOSKELETAL: No obvious deformities. 1+ bilateral lower extremity edema. NEUROLOGICAL: Awake and alert. No obvious cranial nerve deficits. Motor grossly within normal limits. 5/5 muscle strength in bilateral upper and lower extremities. Normal speech. PSYCHIATRIC: Appropriate mood and affect; insight and judgment normal. Hospital Course 65-year-old male with history of HTN, HLD, tobacco use, LAMONTE on CPAP, depression , presents with a one-month history of recurrent chest pains. He saw his PCP Dr. Patel today who recommended the patient come to the ER for admission to the chest pain center. ER physician admitted to hospitalist instead of chest pain center due to classic stable angina, requesting cardiology consult. Stable Angina: patient's symptoms classic for stable angina, chest pressure/SOB only with exertion, relieved by rest; risk factors with HTN/HLD/tobacco use/ family hx. CXR images reviewed by me, unremarkable. Initial troponin negative and EKG with nonspecific T wave changes. Continue to rule out ACS with serial cardiac enzymes and EKG. Given Aspirin in ER. Nitro and IV morphine prn chest pain. Heparin SQ. Unable to have BB due to bradycardia. Consult cardiology. Keep NPO after midnight for likely stress test vs cath in the am. Patient also has a cardiac murmur and he has LE edema. Will check 2 D ECHO. Also check CTA to r/o PE per Dr Khan cards. Plan for stress test if CTA neg for PE Trops neg x3 no change in EKG. Patient says he would rather have exercise stress test. Dr Khan recommends eventually nuclear stress test. Patient/family spoke with Dr Patel his PCP and he recommends Dr Huffman cardiology. Patient/ wants Dr Huffman cardiology to be involved on the case. Consult Dr Huffman. Dr Khan was notified. Lower Extremity Edema: suspect dependent edema however with SOB as above, will check BNP. No calf pain. Continue patient's diuretic HCTZ. HTN: chronic, continue patient's Norvasc 5mg hs and HCTZ 25mg qd. Monitor BP, adjust antihypertensives as needed. HLD: chronic, continue patient's statin hs. Check lipid panel in am. LAMONTE on CPAP: patient may continue CPAP. Depression/Anxiety: chronic, continue patient's Wellbutrin bid and Ativan prn. Tobacco Use: patient smokes tobacco via pipe daily [id number]. Counseled on cessation. Avoid vasoconstriction with nicotine patch secondary to chest pain as above. DVT Prophylaxis: teds/SCDs, heparin sq NOTE: seen by Dr Huffman 06/24/16 he recommends discharging the patient and to follow up with him in his offfice tomorrow 06/25/16 at 10 AM, patient was adviced NPO after midnight. Patient /family agrees with this plan DC home in fairly well condition To follow up with Dr Huffman cards as OP 06/25/16 for stress test in his office. To follow up as OP with PCP and consultants. Meds per med reconcilliations Activity as tolerated Diet healthy heart diet Pt Condition on Discharge: Fair Discharge Disposition: Discharge Home Discharge Time: <= 30 minutes Discharge Instructions DIET: Follow Instructions for: Heart Healthy Diet Activities you can perform: Regular-No Restrictions Follow up Referrals: Cardiology - 06/25/16 with Linda Huffman MD PCP Follow-up - 3-5 Days New Medications: Nitroglycerin SL (Nitrostat SL) 0.4 Mg Subl 0.4 MG SL Q5M PRN ANGINA #30 CAP Continued Medications: Amlodipine (Amlodipine) 5 Mg Tab 1 TAB PO DAILY Blood Pressure Management #90 Ref 0 TAB Aspirin (Aspirin) 81 Mg Chew 81 MG CHEW DAILY Ref 0 TAB Bupropion HCl ER 12 HR (Wellbutrin SR 12 HR) 200 Mg Tab 200 MG PO BID Control Depression #180 Ref 0 TAB Hydrochlorothiazide (Hydrochlorothiazide) 25 Mg Tab 25 MG PO DAILY #90 Ref 0 TAB Loratadine (Loratadine) 10 Mg Tab 10 MG PO DAILY Allergy Management Ref 0 TAB Lorazepam (Ativan) 1 Mg Tab 1 MG PO BID PRN ANXIETY AND/OR AGITATION #90 Ref 0 TAB Multiple Vitamin (Multiple Vitamin) 1 Tab 1 TAB PO DAILY Nutritional Supplement Ref 0 TAB Pravastatin (Pravastatin) 20 Mg Tab 1 TAB PO DAILY Cholesterol Management #90 Ref 0 TAB Vardenafil (Levitra) 20 Mg Tab 20 MG PO DAILY PRN ERECTILE DYSFUNCTION #12 Ref 0 TAB Dolly Álvarez MD Jun 24, 2016 17:47
--- NOTE | 2016-06-25 09:12 | EC ---
Study Study Date:06/24/2016 STUDY CONCLUSIONS SUMMARY - Left ventricle: The cavity size was normal. Wall thickness was normal. Systolic function was normal. The estimated ejection fraction was in the range of 55% to 60%. Wall motion was normal; there were no regional wall motion abnormalities. - Aortic valve: Valve area: 1.82cm^2 (Vmax). - Mitral valve: Mild regurgitation. - Tricuspid valve: Mild regurgitation. If LV function is below 40, please consider prescribing an ACEI or ARB or document rationale for non-use. PROCEDURE DATA STUDY STATUS: Elective. Procedure: Transthoracic echocardiography. Image quality was good. Scanning was performed from the parasternal, apical, and subcostal acoustic windows. Study completion: The patient tolerated the procedure well. Transthoracic echocardiography. M-mode, complete 2D, complete spectral Doppler, and color Doppler. Patient status: Inpatient. CARDIAC ANATOMY LEFT VENTRICLE: The cavity size was normal. Wall thickness was normal. Systolic function was normal. The estimated ejection fraction was in the range of 55% to 60%. Wall motion was normal; there were no regional wall motion abnormalities. AORTIC VALVE: Trileaflet; mildly thickened leaflets. Doppler: Transvalvular velocity was within the normal range. There was no stenosis. No regurgitation. Valve area: 1.82cm^2 (Vmax). Mean gradient: 8mm Hg (S). Peak gradient: 16mm Hg (S). AORTA: Aortic root: The aortic root was normal in size. MITRAL VALVE: Structurally normal valve. Doppler: Transvalvular velocity was within the normal range. There was no evidence for stenosis. Mild regurgitation. Peak gradient: 4mm Hg (D). LEFT ATRIUM: The atrium was normal in size. RIGHT VENTRICLE: The cavity size was normal. Wall thickness was normal. PULMONIC VALVE: Doppler: Transvalvular velocity was within the normal range. There was no evidence for stenosis. No regurgitation. TRICUSPID VALVE: Structurally normal valve. Doppler: Transvalvular velocity was within the normal range. Mild regurgitation. PULMONARY ARTERY: The main pulmonary artery was normal-sized. Systolic pressure was within the normal range. RIGHT ATRIUM: The atrium was normal in size. PERICARDIUM: There was no pericardial effusion. SYSTEMIC VEINS: Inferior vena cava: The vessel was normal in size. BASIC MEASUREMENTS ADULT NORMAL Left ventricle LV internal dimension, ED, chordal level, 43.6 mm 43-52 PLAX LV internal dimension, ES, chordal level, 31.8 mm 23-38 PLAX Fractional shortening, chordal level, PLAX *27 % >29 LV posterior wall thickness, ED 8.65 mm IVS/LVPW ratio, ED 1.11 <1.3 Ventricular septum Septal thickness, ED 9.56 mm Aortic valve Leaflet separation 20 mm 15-26 BASIC MEASUREMENTS ADULT NORMAL Aortic valve Leaflet separation 20 mm 15-26 Aorta Root diameter, ED 26 mm 20-37 Left atrium Anterior-posterior dimension, ES *43 mm 19-40 LA/aortic root ratio 1.65 DOPPLER MEASUREMENTS ADULT NORMAL Main pulmonary artery Pressure, S 21 mm Hg =30 Aortic valve Peak velocity, S 198 cm/s Mean velocity, S 137 cm/s VTI, S 43.9 cm Mean gradient, S 8 mm Hg Peak gradient, S 16 mm Hg Valve area, Vmax 1.82 cm^2 Mitral valve Peak E-wave velocity 104 cm/s Peak A-wave velocity 85.4 cm/s Deceleration time *264 ms 150-230 Peak gradient, D 4 mm Hg Peak E/A ratio 1.2 Maximal regurgitant velocity 291 cm/s Tricuspid valve Regurgitant peak velocity 185 cm/s Peak RV-RA gradient, S 14 mm Hg Maximal regurgitant velocity 185 cm/s Systemic veins Estimated CVP 10 mm Hg Right ventricle RV pressure, S 29 mm Hg <30 Pulmonic valve Peak velocity, S 144 cm/s LEGEND: Mean values are shown as u=mean value. Asterisk (*) wolfe values outside specified normal range. Prepared and signed by Duncan Caro [id number]
[2016-07-13] MEDS ORDERED: HYDR25TA5 PO (15:20)
[2016-07-13] MEDS ORDERED: ATEN25TA PO (15:20)
[2016-09-13] MEDS ORDERED: HYDR25TA5 PO (10:31)
[2016-09-27] MEDS ORDERED: PLAV75TA29 PO (12:04)
[2016-11-15] MEDS ORDERED: HYDR25TA5 PO (12:17)
[2016-11-15] MEDS ORDERED: PRAV40TA2 PO (12:17)
[2016-11-15] MEDS ORDERED: LORA-474 PO (12:17)
[2016-11-15] MEDS ORDERED: LEVI10TA PO (12:20)
== END 2016-06-24 18:53 | disposition home or self-care (01) ==
LOC: NEPC 14:14 → NEDA 17:28 → NEDH 23:19 → NEPHCDU 06-23 11:23
PROVIDERS: ADMIT Hospitalist; ATTEND Hospitalist
DX: I20.8 Other forms of angina pectoris (principal); I10 Essential (primary) hypertension; R01.1 Cardiac murmur, unspecified; R94.31 Abnormal electrocardiogram [ECG] [EKG]; E78.5 Hyperlipidemia, unspecified; E78.00 Pure hypercholesterolemia, unspecified; F32.9 Major depressive disorder, single episode, unspecified; F41.9 Anxiety disorder, unspecified; G47.33 Obstructive sleep apnea (adult) (pediatric); E66.9 Obesity, unspecified; F17.290 Nicotine dependence, other tobacco product, uncomplicated
CPT/HCPCS: 71010; 71275; 80048; 80061; 82550; 82552; 83735; 83880; 84484; 85025; 85610; 85730; 93005; 93306; 99285; G0378; J1644; Q9967

== ENCOUNTER 2016-06-29 10:27 | Day surgery (SDC) | payer MEDICARE ==
[~2016-06-29] VITALS: Ht 172.7 cm; Wt 119.3 kg
[~2016-06-29 10:27] MED LIST changes: -AMLO5TAB22 PO; -ASPI81 CHEW; -HYDR-2768 PO; -MULT-65 PO; +NITR0.4S SL; -PRAV20 PO; -WAL-10TA2 PO
[2016-06-29 10:55] VITALS: BP 151/80; PULSE 59; RESP 16; TEMP 98.1; O2SAT 95
[2016-06-29 11:07] LABS: AUTOMATED NEUTROPHIL # 4.2 TH/MM3 (1.8-7.7); BASOPHIL # 0.1 TH/MM3 (0-0.2); BASOPHIL % 0.7 % (0.0-2.0); EOSINOPHIL # 0.7 TH/MM3 (0-0.4); EOSINOPHIL % 8.4 % (0.0-4.0); HEMATOCRIT 43.2 % (39.0-51.0); HEMO FLAGS DIFF FINAL; LYMPH % 27.3 % (9.0-44.0); LYMPHOCYTE # 2.1 TH/MM3 (1.0-4.8); MEAN CELL VOLUME 87.9 FL (80.0-100.0); MEAN CORPUSCULAR HEMOGLOBIN 30.1 PG (27.0-34.0); MEAN CORPUSCULAR HGB CONC 34.2 % (32.0-36.0); NEUT % 53.6 % (16.0-70.0); PLATELET COUNT 238 TH/MM3 (150-450); RED BLOOD COUNT 4.91 MIL/MM3 (4.50-5.90); WHITE BLOOD COUNT 7.9 TH/MM3 (4.0-11.0)
[2016-06-29] MEDS ORDERED: NS 1000P @30 MLS/HR (KVO) IV SCH (11:15)
[2016-06-29 11:19] LABS: APTT (PATIENT) 25.3 SEC (24.3-30.1); INTERNATIONAL NORMALIZED RATIO 0.9 RATIO; PROTHROMBIN TIME - PATIENT 10.1 SEC (9.8-11.6)
[2016-06-29 11:42] LABS: BICARBONATE 30.2 MEQ/L (21.0-32.0)
[2016-06-29 11:46] LABS: POTASSIUM 4.5 MEQ/L (3.5-5.1)
[2016-06-29] MEDS ORDERED: SODIUM CHLOR 0.9% 1000 ML INJ 1,000 ML IV SCH (12:00)
[2016-06-29] MEDS ORDERED: ASPIRIN 325 MG TAB PO SCH (12:00)
[2016-06-29] MEDS ORDERED: MIDAZOLAM HCL 2 MG/2 ML VIAL ONE ×2 (12:58→13:31)
[2016-06-29] MEDS ORDERED: HEPARIN-NS/PF INJ 500 ML ONE (12:58)
[2016-06-29] MEDS ORDERED: IOHEXOL 350 MG/ML 100 ML BTL (for Cath Lab) OTHER ONE (14:00)
[2016-06-29] MEDS ORDERED: ATEN25TA PO (15:08)
--- NOTE | 2016-06-29 15:15 | PD.CAR.PN ---
CVT Progress Note Subjective/Hospital Course: sts data discussed with pt RISK SCORES About the STS Risk Calculator Procedure: CAB Only Risk of Mortality: 0.513% Morbidity or Mortality: 5.629% Long Length of Stay: 1.72% Short Length of Stay: 68.526% Permanent Stroke: 0.411% Prolonged Ventilation: 3.413% DSW Infection: 0.211% Renal Failure: 1.111% Reoperation: 2.776% Objective: Vital Signs Date Time Temp Pulse Resp B/P Pulse Ox O2 Delivery O2 Flow Rate FiO2 06/29/16 14:37 Room Air 06/29/16 10:55 98.1 59 16 151/80 95 Labs: Laboratory Tests Test 06/29/16 10:50 White Blood Count 7.9 TH/MM3 (4.0-11.0) Red Blood Count 4.91 MIL/MM3 (4.50-5.90) Hemoglobin 14.8 GM/DL (13.0-17.0) Hematocrit 43.2 % (39.0-51.0) Mean Corpuscular Volume 87.9 FL (80.0-100.0) Mean Corpuscular Hemoglobin 30.1 PG (27.0-34.0) Mean Corpuscular Hemoglobin 34.2 % Concent (32.0-36.0) Red Cell Distribution Width 14.0 % (11.6-17.2) Platelet Count 238 TH/MM3 (150-450) Mean Platelet Volume 7.0 FL (7.0-11.0) Neutrophils (%) (Auto) 53.6 % (16.0-70.0) Lymphocytes (%) (Auto) 27.3 % (9.0-44.0) Monocytes (%) (Auto) 10.0 % (0.0-8.0) Eosinophils (%) (Auto) 8.4 % (0.0-4.0) Basophils (%) (Auto) 0.7 % (0.0-2.0) Neutrophils # (Auto) 4.2 TH/MM3 (1.8-7.7) Lymphocytes # (Auto) 2.1 TH/MM3 (1.0-4.8) Monocytes # (Auto) 0.8 TH/MM3 (0-0.9) Eosinophils # (Auto) 0.7 TH/MM3 (0-0.4) Basophils # (Auto) 0.1 TH/MM3 (0-0.2) CBC Comment DIFF FINAL Differential Comment Prothrombin Time 10.1 SEC (9.8-11.6) Prothromb Time International 0.9 RATIO Ratio Activated Partial 25.3 SEC Thromboplast Time (24.3-30.1) Sodium Level 140 MEQ/L (136-145) Potassium Level 4.5 MEQ/L (3.5-5.1) Chloride Level 105 MEQ/L (98-107) Carbon Dioxide Level 30.2 MEQ/L (21.0-32.0) Anion Gap 5 MEQ/L (5-15) Blood Urea Nitrogen 20 MG/DL (7-18) Creatinine 0.96 MG/DL (0.60-1.30) Estimat Glomerular Filtration 78 ML/MIN (>89) Rate Random Glucose 99 MG/DL (74-106) Calcium Level 9.2 MG/DL (8.5-10.1) Result Diagram: 06/29/16 1050 06/29/16 1050 Magnolia Marrero Jun 29, 2016 15:15
[2016-06-29 16:12] LABS: HEMOGLOBIN A1a 1.1 %; HEMOGLOBIN A1b 1.8 %; HEMOGLOBIN Ao 84.7 %; HEMOGLOBIN LA1C 2.1 %
--- NOTE | 2016-06-29 16:46 | RADRPT ---
EXAM DATE/TIME: 06/29/2016 15:30 [facility] COMPARISON: No previous studies available for comparison. INDICATIONS : Preop cardiac surgery. MEDICAL HISTORY : Hypercholesterolemia. Hypertension. Hyperlipidemia. Sleep apnea. Diabetes. SURGICAL HISTORY : Vasectomy. Cardiac cath. ENCOUNTER: Initial ACUITY: 1 day PAIN SCORE: 0/10 LOCATION: Bilateral neck PEAK SYSTOLIC VELOCITIES (cm/sec): ICA/CCA RATIO: Right: 0.9 Left: 0.9 ICA: Right: 79 Left: 75 CCA: Right: 85 Left: 87 ECA: Right: 114 Left: 91 VERTEBRAL: Right: 65 antegrade Left: 52 antegrade Elevated flow velocities and ICA/CCA ratios have been found to correlate with increased degrees of vessel stenosis, calculated as percentage of diameter relative to a normal segment of distal ICA/CCA FINDINGS: RIGHT CAROTID: There is minimal plaque at the distal common carotid artery region. No significant stenosis is visual ized. The waveforms are within normal limits. LEFT CAROTID: There is mild plaque at the carotid bulb region. No significant stenosis is visualized. The waveform s are within normal limits. VERTEBRAL ARTERIES: Antegrade flow is seen in both vertebral arteries. MISCELLANEOUS: None. CONCLUSION: Minimal plaque on the right and mild plaque on the left seen without significant stenosis.. Guillermo Harris MD on June 29, 2016 at 16:42 Board Certified Radiologist. This report was verified electronically.
--- NOTE | 2016-06-29 16:47 | RADRPT ---
EXAM DATE/TIME: 06/29/2016 15:50 [facility] COMPARISON: No previous studies available for comparison. INDICATIONS : Preop cardiac surgery. MEDICAL HISTORY : Hypercholesterolemia. Hypertension. Hyperlipidemia. Sleep apnea. Diabetes. SURGICAL HISTORY : Vasectomy. Cardiac cath. ENCOUNTER: Initial ACUITY: 1 day PAIN SCORE: 0/10 LOCATION: Bilateral leg. TECHNIQUE: Venous ultrasound of the left and right leg was performed from the inguinal ligament to the proximal calf. Real-time, color Doppler and spectral tracing, compression and augmentation techniques were us ed. FINDINGS: RIGHT LEG: There is normal compressibility of the deep venous system from the inguinal region to the proximal ca lf. No echogenic clot is seen in the lumen of the common femoral, femoral, popliteal, and posterior tibial veins. There is a normal response of the venous system to proximal and distal augmentation an d respiration. LEFT LEG: There is normal compressibility of the deep venous system from the inguinal region to the proximal ca lf. No echogenic clot is seen in the lumen of the common femoral, femoral, popliteal, and posterior tibial veins. There is a normal response of the venous system to proximal and distal augmentation an d respiration. CONCLUSION: No DVT. Guillermo Harris MD on June 29, 2016 at 16:45 Board Certified Radiologist. This report was verified electronically.
--- NOTE | 2016-06-29 16:47 | RADRPT ---
EXAM DATE/TIME: 06/29/2016 16:01 [facility] COMPARISON: No previous studies available for comparison. INDICATIONS : Preop cardiac surgery. MEDICAL HISTORY : Hypercholesterolemia. Hypertension. Hyperlipidemia. Sleep apnea. Diabetes. SURGICAL HISTORY : Vasectomy. Cardiac cath. ENCOUNTER: Initial ACUITY: 1 day PAIN SCORE: 0/10 LOCATION: Bilateral leg. GREATER SAPHENOUS VEIN THIGH: PROXIMAL: Right 4 mm Left 4 mm MID: Right 3 mm Left 2 mm DISTAL: Right 4 mm Left 2 mm CALF: PROXIMAL: Right 2 mm Left 2 mm MID: Right 2 mm Left 3 mm DISTAL: Right 3 mm Left 3 mm FINDINGS: The venous system of the lower extremities are patent by color Doppler imaging. Measurements of the leg veins (in mm) are listed above. CONCLUSION: Venous mapping as described above. Guillermo Harris MD on June 29, 2016 at 16:45 Board Certified Radiologist. This report was verified electronically.
[2016-06-29 18:36] LABS: BLOOD, URINE NEG (NEG); COMMENT (UR) CULT NOT INDICATED; CULTURE IF INDICATED CULT NOT INDICATED; GLUCOSE,URINE NEG (NEG); KETONE, URINE NEG (NEG); MUCUS URINE FEW /lpf (OCC); NITRITE,URINE NEG (NEG); SQUAMOUS EPITHELIAL CELL URINE <1 /hpf (0-5); URINE COLOR YELLOW (YELLW/STRAW)
--- NOTE | 2016-06-30 08:45 | MB ---
cc: JEAN FERNANDEZ MD DATE OF CONSULTATION: 06/29/2016 REASON FOR CONSULTATION: This is a 65-year-old male presented to the emergency room about a week ago, that had chest pain after mowing his lawn, has apparently had chest pain off and on for the past 1 year but mainly about a month ago with shortness of breath on exertion. He had a CTA in the hospital which was unremarkable. He was seen and evaluated in the emergency department. The patient had negative troponin was sent home and then evaluated by cardiac cath today by Dr. Huffman, the cardiac catheterization revealed a severe 100% proximal LAD collaterals filled, 90% stenosis, diagonal 70% obtuse marginal, large RV branch. The RCA was small with a 90% stenosis, EF of 60%. We were consulted to evaluate for coronary artery bypass grafting. Again, the patient had a CTA of the chest on his admission to the ER a week ago which had shown a little bit of cardiomegaly some mild basilar atelectasis, a small 12 mm low density lesion in the right lobe of the liver. Echocardiogram report showed 50-60% EF, normal systolic function, trivial valvular disease. PAST MEDICAL HISTORY: The patient's past medical history significant for hypertension hyper lipidemia Anxiety Depression Sleep apnea on C-PAP machine at home. He has a women designer, Dr. Darin Kendall. Tobacco use in the past lower extremity edema Obesity. PAST SURGICAL HISTORY: Surgeries include of cardiac cath the had done today. ALLERGIES He has no known allergies. MEDICATIONS Home medications include 1. Amlodipine 5 mg daily. 2. Hydrochlorothiazide 25 daily. 3. Atacand 1 mg p.o. b.i.d. p.r.n. for anxiety. 4. Pravachol 20 p.o. daily. 5. Levitra p.r.n. for erectile dysfunction. 6. Aspirin 81 daily. 7. Loratadine 10 daily. 8. Multivitamin. 9. Wellbutrin 200 p.o. b.i.d. 10. Nitrostat 0.4 p.o. p.r.n. for chest pain. 11. Methylphenidate 12. Provigil 5 mg daily. FAMILY HISTORY: Father at 86 had history of coronary artery disease and coronary artery bypass grafting. Mother from COPD and cancer. 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 REVIEW OF SYSTEMS IN GENERAL: No night sweats, fever, heat and cold intolerance. SKIN: No psoriasis, itching or hives. HEAD, EYES, EARS, NOSE, AND THROAT: No blurred vision, hearing loss. RESPIRATORY: Positive for shortness of breath. CARDIOVASCULAR SYSTEM: As above in HPI. GASTROINTESTINAL: No diarrhea, vomiting. GENITOURINARY: No burning frequency, urgency. CENTRAL NERVOUS SYSTEM: No history of TIA, CVA, seizure disorder ENDOCRINOLOGY: No history hypothyroidism and/or diabetes. PHYSICAL EXAMINATION: VITAL SIGNS: On exam blood pressure 150/80, heart rate 60, afebrile. IN GENERAL: Patient is awake, alert in no acute distress. HEAD, EYES, EARS, NOSE, AND THROAT: Head is normocephalic, atraumatic. Pupils equal and reactive. Oral mucosa pink, moist. NECK: Supple. No JVD. HEART: Heart sounds S1-S2 regular rate and rhythm. No rubs, murmurs, gallops. LUNGS: Clear to auscultation. No wheezes, rales or rhonchi. ABDOMEN: Soft, nontender. No masses or organomegaly. EXTREMITIES: No cyanosis, clubbing or edema. LABORATORY FINDINGS: Lab work shows hemoglobin of 14, hematocrit of 43, white cell count of 7.9, platelet count 238, sodium 140, potassium 4.5, BUN 20, creatinine 0.96. Radiological exams as above. IMPRESSION This is a very pleasant 65-year-old patient, primary care physician Dr. Patel, Dr. Huffman with multivessel disease, EF of 60%. Procedures, alternatives and risks have been discussed by Dr. Jean Fernandez, plan is for coronary artery bypass grafting on TuesdayJuly 05. The patient is agreeable to proceed. Will set up for scheduling. DICTATED BY: APRIL Medina Jean Thomas /3:19 PM /8:42 AM
[2016-06-30] MEDS ORDERED: ATENOLOL 25 MG TAB PO SCH (09:00)
--- NOTE | 2016-06-30 20:50 | EKG ---
Date Performed: 06/29/2016 Time Performed: 11:10:24 PTAGE: 65 years EKG: Sinus bradycardia Possible inferior infarct - age undetermined Low QRS voltages in precordi al leads Abnormal ECG PREVIOUS TRACING : 06/23/2016 03.55 Compared to prior tracing no significant change DOCTOR: Danny Gay Interpretating Date/Time 06/30/2016 20:49:59
--- NOTE | 2016-07-02 07:20 | MA ---
cc: LINDA HUFFMAN M.D., EDWIN E. M.D. KHANNA, SOHIT K. MD DATE: 06/29/2016 PROCEDURE Cardiac catheterization. REASON FOR CARDIAC CATHETERIZATION Unstable angina, chest pain classic history of [place]. See dictated H and P. The patient was admitted to the [facility] and watched for a couple of days before discharge for new onset angina. He is here for diagnostic heart cath CONSENT A full informed consent was obtained prior to the procedure. The risks of , bleeding, myocardial infarction, stroke, foreseen and unforeseen complications were reviewed. The risks of stent placement and bypass surgery were reviewed. The patient fully appeared to understand the risks. PROCEDURAL STATEMENTS The patient was draped and prepped in the usual manner. The right femoral artery was entered using a micropuncture technique. Via a 4-Occitan sheath left and right coronary catheters were used to intubate the left and right coronaries. A pigtail catheter was used to intubate the left ventricle. Multiple angiographic views were carried out. At the end of the catheterization procedure all catheters were removed. The sheath was left in place to be pulled in the holding area, and the patient was returned to his room in stable condition. FINDINGS HEMODYNAMICS The aortic pressure was 118/53 with a mean of 84. The left ventricular pressure was 119 with a left ventricular end-diastolic pressure 21 mm. There was no evidence of significant gradient on pullback across the LV outflow tract or aortic valve. LEFT VENTRICULOGRAM The overall left ventricular ejection fraction was very well-preserved at 60%. There was no evidence of significant mitral regurgitation or mural thrombus. CORONARIES The left main was free of significant disease. The left anterior descending artery was flush occluded in its midsection just after the origin of a large first diagonal branch. The large diagonal branch was diffusely diseased with a mid stenosis of approximately 90-95%. This was a medium to large vessel. The LAD itself filled via left injections via collaterals and also filled via the right coronary injection. The LAD appeared to be a moderate size vessel and ghosted in. The circumflex artery is a large vessel with a very large first obtuse marginal branch which bifurcates. There is a small second obtuse marginal branch. At the ostium of this vessel is a high-grade stenosis of about 70% which is eccentric. The posterolateral branch appears to come off the circumflex vessel. There may be some ghosting in of the PDA but this is not clearly seen. Right coronary injection: There is evidence of a small right coronary with a large RV branch. There is diffuse disease in the proximal small right coronary of 90%. The RV branch has significant collaterals to the distal LAD which fills retrogradely via this injection. CONCLUSIONS Severe three-vessel coronary artery disease. PLAN Bypass surgery to the LAD, the diagonal branch, the large obtuse marginal branch and if possible the RV branch. The most important vessel is the first obtuse marginal branch which may benefit from an arterial graft if this is possible as per Dr. Coe. Linda Huffman MD, FRCP,[facility] /2:09 PM /7:02 AM [facility]
[2016-07-13] MEDS ORDERED: HYDR25TA5 PO (15:20)
[2016-07-13] MEDS ORDERED: ATEN25TA PO (15:20)
[2016-09-13] MEDS ORDERED: HYDR25TA5 PO (10:31)
[2016-09-27] MEDS ORDERED: PLAV75TA29 PO (12:04)
[2016-11-15] MEDS ORDERED: PRAV40TA2 PO (12:17)
[2016-11-15] MEDS ORDERED: LORA-474 PO (12:17)
[2016-11-15] MEDS ORDERED: HYDR25TA5 PO (12:17)
[2016-11-15] MEDS ORDERED: LEVI10TA PO (12:20)
== END 2016-06-29 18:37 | disposition home or self-care (01) ==
LOC: HDOC 10:27 → HDIC 10:28 → HDOC 18:37
PROVIDERS: ATTEND Internal Medicine Cardiovascular Disease
PROC: B2111ZZ Fluoroscopy of Multiple Coronary Arteries using Low Osmolar Contrast (ICD-10-PCS; principal; 2016-06-29 12:30)
PROC: 4A023N7 Measurement of Cardiac Sampling and Pressure, Left Heart, Percutaneous Approach (ICD-10-PCS; principal; 2016-06-29 12:30)
PROC: B2151ZZ Fluoroscopy of Left Heart using Low Osmolar Contrast (ICD-10-PCS; principal; 2016-06-29 12:30)
DX: I25.10 Atherosclerotic heart disease of native coronary artery without angina pectoris (principal); I10 Essential (primary) hypertension; E78.5 Hyperlipidemia, unspecified; E11.9 Type 2 diabetes mellitus without complications; G47.30 Sleep apnea, unspecified; E78.00 Pure hypercholesterolemia, unspecified; E66.9 Obesity, unspecified; Z68.41 Body mass index [BMI] 40.0-44.9, adult; Z79.82 Long term (current) use of aspirin; Z79.01 Long term (current) use of anticoagulants; Z01.818 Encounter for other preprocedural examination
CPT/HCPCS: 80048; 81001; 83036; 85025; 85610; 85730; 87641; 93005; 93458; 93880; 93970; 93998; 94010; C1769; C1893; J1644; J2250; J3010; Q9967

== ENCOUNTER 2016-06-30 16:57 | Inpatient (IN) | payer MEDICARE ==
[~2016-06-30] VITALS: Ht 172.7 cm; Wt 123.9 kg
[~2016-06-30 16:57] MED LIST changes: +ATEN25TA PO
[2016-07-01] VITALS (15 sets, daily range): BP systolic 98–145; BP diastolic 46–68; PULSE 43–71; RESP 11–20; TEMP 97.8–99.2; O2SAT 95–100
[2016-07-01] MEDS ORDERED: ceFAZolin INJ 1,000 MG VIAL IV ONE (05:00)
[2016-07-01] MEDS ORDERED: NITROGLYCERIN 50 MG/DEXTROSE 5% SOLN 250 ML BTL IV ONE (05:00)
[2016-07-01] MEDS ORDERED: MAGNESIUM SULFATE 1000 MG/2 ML VIAL (PED) IV ONE (05:00)
[2016-07-01] MEDS ORDERED: DEXMEDETOMIDINE INJ 50 ML IV ONE (05:00)
[2016-07-01] MEDS ORDERED: PROTAMINE SULFATE 250 MG/25 ML VIAL IV ONE (05:00)
[2016-07-01] MEDS ORDERED: HEPARIN SODIUM - SQ 10,000 UNITS/ML VIAL SQ ONE (05:00)
[2016-07-01] MEDS ORDERED: SODIUM CHLORIDE 0.9% FLUSH 5 ML FLUSH IV FLUSH PRN ×2 (06:00→12:15)
[2016-07-01] MEDS: LACTATED RINGER'S 1000 ML IV SCH (06:15)
[2016-07-01] MEDS: SODIUM CHLORID 0.9% 500 ML IV SCH ×2 (06:15→22:55)
[2016-07-01] MEDS ORDERED: INSULIN REGULAR 100 UNITS in NS 100 ML IV SCH (06:15)
[2016-07-01] MEDS ORDERED: INSULIN HUMAN REGULAR 1,000 UNITS/10 ML VIAL SQ PRN (06:15)
[2016-07-01] MEDS ORDERED: ceFAZolin 2 GM PREMIX 50 ML IV SCH (06:15)
[2016-07-01] MEDS ORDERED: PAPAVERINE 60 MG-NITROGLYCERIN 100 MCG-DILTIAZEM 100 MG in NS 100 ML IRRIGATION SCH ×4 (06:15)
[2016-07-01] MEDS ORDERED: METOPROLOL TARTRATE 25 MG TAB PO PRN (06:15)
[2016-07-01] MEDS ORDERED: CEFAZOLIN 500 MG in NS IRR BTL 500 ML IRRIGATION SCH (06:15)
[2016-07-01] MEDS ORDERED: METOPROLOL TARTRATE 25 MG TAB PO SCH (06:15)
[2016-07-01] MEDS ORDERED: METH5TAB7 PO (06:18)
[2016-07-01] MEDS ORDERED: HEPARIN SODIUM - IV 10,000 UNITS/10 ML VIAL ONE (06:20)
[2016-07-01] MEDS ORDERED: VANCOMYCIN HCL 1000 MG VIAL ONE (06:21)
[2016-07-01] MEDS ORDERED: HEPARIN SODIUM - SQ 10,000 UNITS/ML VIAL ONE (06:21)
[2016-07-01] MEDS: MUPIROCIN 2% OINT 22 GM TUBE EACH NARE SCH ×2 (09:00→21:00)
[2016-07-01] MEDS ORDERED: SODIUM CHLORIDE 0.9% FLUSH 5 ML FLUSH IV FLUSH SCH (09:00)
[2016-07-01] MEDS ORDERED: ceFAZolin INJ 1,000 MG VIAL ONE (11:41)
[2016-07-01] MEDS ORDERED: LACTATED RINGER'S 1000 ML INJ 500 ML IV PRN (12:05)
[2016-07-01] MEDS: DOBUTamine PREMIX DRIP 250 ML IV SCH (12:05)
[2016-07-01] MEDS ORDERED: POTASSIUM CHLORIDE 20 MEQ CONTROLLED RELEASE TAB PO PRN ×2 (12:15)
[2016-07-01] MEDS ORDERED: DEXMEDETOMIDINE INJ 50 ML IV SCH (12:15)
[2016-07-01] MEDS ORDERED: EPINEPHrine (1:1000) INJ 4 MG in DEXTROSE 5% IN WATER INJ 246 ML IV SCH ×2 (12:15)
[2016-07-01] MEDS ORDERED: ALBUMIN HUMAN 5% 12.5 GM/250 ML BOTTLE IV PRN (12:15)
[2016-07-01] MEDS ORDERED: ACETAMINOPHEN 325 MG TAB PO PRN (12:15)
[2016-07-01] MEDS ORDERED: NITROGLYCERIN-DEXTROSE INJ 250 ML IV SCH (12:15)
[2016-07-01] MEDS ORDERED: CALCIUM CHLORIDE 10% 1 GRAM/10 ML VIAL IV PRN (12:15)
[2016-07-01] MEDS ORDERED: hydrALAZINE HCL 20 MG/ML VIAL IV PRN (12:15)
[2016-07-01] MEDS ORDERED: MAGNESIUM SULFATE INJ 2 GM in SODIUM CHLORIDE 0.9% INJ 100 ML IV PRN ×4 (12:15)
[2016-07-01] MEDS ORDERED: CLEVIDIPINE INJ 50 ML IV SCH (12:15)
[2016-07-01] MEDS ORDERED: METOPROLOL TARTRATE 5 MG/5 ML VIAL IV PUSH PRN (12:15)
[2016-07-01] MEDS ORDERED: DEXTROSE 50% IN WATER 50 ML VIAL(D50) IV PUSH PRN (12:15)
[2016-07-01] MEDS ORDERED: DOPamine INJ PREMIX 500 ML IV SCH (12:15)
[2016-07-01] MEDS ORDERED: MORPHINE SULFATE 4 MG/ML INJ IV PRN (12:15)
[2016-07-01] MEDS ORDERED: ONDANSETRON HCL 4 MG/2 ML VIAL IV PUSH PRN (12:15)
[2016-07-01] MEDS ORDERED: POTASSIUM CHLOR 20 MEQ PREMIX 100 ML IV PRN ×3 (12:15)
[2016-07-01] MEDS ORDERED: ACETAMINOPHEN 650 MG SUPP RECTAL PRN (12:15)
[2016-07-01] MEDS ORDERED: Post-op Orders (for Pharmacy) MISC OTHER ONE (12:15)
[2016-07-01] MEDS ORDERED: PHENYLEPHRINE INJ 40 MG in DEXTROSE 5% IN WATE 500 ML INJ 496 ML IV SCH ×2 (12:15)
[2016-07-01] MEDS ORDERED: MEPERIDINE HCL 25 MG/ML VIAL IV PRN (12:15)
[2016-07-01] MEDS ORDERED: fentaNYL CITRATE 1000 MCG/20 ML VIAL ONE (12:47)
[2016-07-01] MEDS ORDERED: MIDAZOLAM HCL 5 MG/5 ML VIAL ONE (12:47)
[2016-07-01] MEDS ORDERED: INSULIN REGULAR (IV INFUSION) 100 UNITS in SODIUM CHLORIDE 0.9% INJ 99 ML IV SCH (13:00)
--- NOTE | 2016-07-01 13:25 | RADRPT ---
EXAM DATE/TIME: 07/01/2016 12:53 [facility] COMPARISON: CHEST SINGLE AP, June 22, 2016, 15:26. INDICATIONS : Evaluate heart and lungs S/P CABG MEDICAL HISTORY : Hypertension. SURGICAL HISTORY : CABG. ENCOUNTER: Subsequent ACUITY: 2 days PAIN SCORE: Non-responsive. LOCATION: chest FINDINGS: A single view of the chest demonstrates postoperative changes characteristic of cardiothoracic surger y. The support devices are in place. There is no pneumothorax. The lungs are grossly clear. The heart size is within normal limits. CONCLUSION: Satisfactory postoperative view of the chest. Joel Thurman MD on July 01, 2016 at 13:23 Board Certified Radiologist. This report was verified electronically.
[2016-07-01] MEDS: ACETAMINOPHEN 1000 MG/100 ML VIAL IV SCH ×2 (13:48→20:35)
--- NOTE | 2016-07-01 14:12 | PD.OP ---
cc: Linda Huffman MD; Lucía Coe MD; Jose G Patel Jr., MD Operative Report Date of Surgery: Jul 01, 2016 Preoperative Diagnosis: Postoperative Diagnosis: Procedure: 1. Off-pump Coronary Artery Bypass Grafting x 4 with left internal mammary artery (BAUMAN) to left anterior descending (LAD), reverse saphenous vein graft to Diagonal 1, reverse saphenous vein graft to the OM1, reverse saphenous vein graft to the Right Ventricular Branch of the RCA 2. Right Leg Endoscopic Vein Dinuba 3. Intraoperative Vein Mapping. . Surgeon: Lucía Coe Burlap Roll Coverer(s): Kane Burrows Operation and Findings: PREPROCEDURE DIAGNOSES 1. Severe Multi Vessel Coronary Artery Disease. 2. Obesity 3. Diabetes 4. Unstable Angina POSTPROCEDURE DIAGNOSES Same SURGICAL PROCEDURE 1. Off-pump Coronary Artery Bypass Grafting x 4 with left internal mammary artery (BAUMAN) to left anterior descending (LAD), reverse saphenous vein graft to Diagonal 1, reverse saphenous vein graft to the OM1, reverse saphenous vein graft to the Right Ventricular Branch of the RCA 2. Right Leg Endoscopic Vein Dinuba 3. Intraoperative Vein Mapping. SURGEON Lucía Coe MD AIRCRAFT MECHANIC ALMAZ [place] La [place], [facility] ANESTHESIA General endotracheal . TOLL BOOTH OPERATOR KIM Sheriff MD PREPARATION ChloraPrep. COUNTS Needle, sponge, and instrument counts were correct. DRAINS Two 32-[place] mediastinal tubes. COMPLICATIONS None. INDICATIONS FOR PROCEDURE The patient is a 65-year-old presenting with chest pain. Patient was noted to have multi-vessel coronary artery disease. The patient is being brought to the operating room for surgical revascularization therapy. PROCEDURE Patient was brought to the operating room and placed supine on the OR table. Following the induction of adequate general endotracheal anesthesia and placement of appropriate monitoring devices, intraoperative vein mapping was performed which revealed suitable-caliber conduit in bilateral lower extremities. The patient was then prepped and draped in standard sterile fashion. Next, 2500 units of intravenous heparin was given. The right greater saphenous vein was harvested endoscopically. This appeared to be a useable- caliber conduit. Simultaneously, a median sternotomy was performed and the left internal mammary artery dissected free off the posterior sternal table. The patient was systemically heparinized and anticoagulation monitored by serial ACT measurements. The internal mammary artery had good pulsatile flow in it and was an excellent-caliber conduit. The pericardium was then divided in the midline, the cradle created and targets analyzed. At this point, all anastomoses were performed in a beating-heart fashion using the Maquet stabilizing system. The left internal mammary artery was anastomosed to a totally occluded mid LAD in an end-to-side fashion using 7-0 Prolene. Segment of saphenous vein graft was then anastomosed to the diagonal 1 in an end-to- side fashion using 7-0 Prolene. The next segment was anastomosed to the OM1 in an end-to-side fashion using 7-0 Prolene. The final segment was anastomosed to the RV branch of the RCA in an end-to-side fashion using a running 7-0 Prolene. The proximal anastomoses were then constructed to the ascending aorta in a running manner using 6-0 Prolene. All anastomotic sites were inspected and appeared to be hemostatic and patent. Protamine solution was given. Strict hemostasis was assured. The closure was undertaken. 2 chest tubes were placed. The pericardium was reapproximated in the midline. The sternum was approximated using sternal wires. The muscular and fascial layer were then closed in 3 layers. The endoscopic vein harvest site was closed in 2 layers. The patient tolerated the procedure well and was transferred to CVICU in stable condition. Lucía Coe MD Jul 01, 2016 14:12
[2016-07-01] MEDS: ceFAZolin 2 GM PREMIX 50 ML IV SCH (15:35)
[2016-07-01] MEDS: CALCIUM CHLORIDE INJ 1 GM in SODIUM CHLORIDE 0.9% INJ 100 ML IV PRN (17:18)
[2016-07-01] MEDS: AMIODARONE 200 MG TAB PO SCH (20:27)
[2016-07-01] MEDS: KETOROLAC TROMETHAMINE 30 MG/ML (IVP) VIAL IV PUSH PRN (20:28)
[2016-07-02] VITALS (8 sets, daily range): BP systolic 94–135; BP diastolic 49–75; PULSE 55–84; RESP 16–28; TEMP 98–99.5; O2SAT 92–98
[2016-07-02] MEDS: ceFAZolin 2 GM PREMIX 50 ML IV SCH ×3 (00:21→16:06)
[2016-07-02] MEDS: DOBUTamine PREMIX DRIP 250 ML IV SCH (02:09)
[2016-07-02] MEDS: ACETAMINOPHEN 1000 MG/100 ML VIAL IV SCH ×2 (02:16→08:34)
[2016-07-02 05:09] LABS: MEAN CELL VOLUME 88.8 FL (80.0-100.0); MEAN CORPUSCULAR HEMOGLOBIN 30.2 PG (27.0-34.0); PLATELET COUNT 212 TH/MM3 (150-450); RED BLOOD COUNT 3.83 MIL/MM3 (4.50-5.90); RED CELL DISTRIBUTION WIDTH 13.9 % (11.6-17.2); REVIEW FLAG FINAL; WHITE BLOOD COUNT 12.4 TH/MM3 (4.0-11.0)
[2016-07-02 05:21] LABS: BICARBONATE 25.5 MEQ/L (21.0-32.0); MAGNESIUM 2.4 MG/DL (1.5-2.5)
[2016-07-02] MEDS: LACTATED RINGER'S 1000 ML IV SCH (06:15)
[2016-07-02] MEDS: PANTOPRAZOLE SOD 40 MG DELAYED RELEASE TAB PO SCH (06:22)
[2016-07-02] MEDS: KETOROLAC TROMETHAMINE 30 MG/ML (IVP) VIAL IV PUSH PRN (06:22)
[2016-07-02] MEDS: SODIUM CHLORIDE 0.9% FLUSH 5 ML FLUSH IV FLUSH SCH ×3 (06:23→21:11)
--- NOTE | 2016-07-02 06:52 | RADRPT ---
EXAM DATE/TIME: 07/02/2016 05:08 [facility] COMPARISON: CHEST SINGLE AP, July 01, 2016, 12:53. INDICATIONS : Post CABG. MEDICAL HISTORY : Hypertension. SURGICAL HISTORY : CABG. ENCOUNTER: Subsequent ACUITY: 1 week PAIN SCORE: Non-responsive. LOCATION: Bilateral chest FINDINGS: Right IJ line is present with tip overlapping the expected region of the SVC. Chest tube is present o n the left side. Mediastinal tube is again seen. Previously seen NG tube has been removed. Previously seen ET tube has been removed. No definite pneumothorax is seen for technique. Slight left lung base consolidation is seen with perivascular haziness. CONCLUSION: Slight left lung base consolidation. Nilo Velazquez MD on July 02, 2016 at 6:49 Board Certified Radiologist. This report was verified electronically.
[2016-07-02] MEDS: oxyCODONE/ACETAMINOPHEN 5 MG/325 MG TAB PO PRN ×4 (08:43→21:10)
[2016-07-02] MEDS: ASPIRIN 81 MG CHEW TAB PO SCH (09:00)
[2016-07-02] MEDS: AMIODARONE 200 MG TAB PO SCH ×2 (09:00→21:10)
[2016-07-02] MEDS: MUPIROCIN 2% OINT 22 GM TUBE EACH NARE SCH ×2 (09:00→21:00)
[2016-07-02] MEDS: CLOPIDOGREL 75 MG TAB PO SCH (09:00)
--- NOTE | 2016-07-02 09:33 | PD.CAR.PN ---
CVT Progress Note CVT: POD #: 1 Subjective/Hospital Course: 65/ male hx/ recent chest pain , underwent cardiac cath by Dr Huffman, multi vessel disease, EF 50-60%, went home and admitted for elective CABG PMH: obesity, LAMONTE ( CPAP at home) narcolepsy, HTN, HLP surgery: Off-pump Coronary Artery Bypass Grafting x 4 with left internal mammary artery (BAUMAN) to left anterior descending (LAD), reverse saphenous vein graft to Diagonal 1, reverse saphenous vein graft to the OM1, reverse saphenous vein graft to the Right Ventricular Branch of the RCA, Right Leg Endoscopic Vein Meyers Chuck 07/01 07/02 extubated after surgery, on nasal cannula chest tube drained 230/ 12 hrs start low dose BB, ASA, Plavix and statin stable to transfer to stepdown unit Objective: GENERAL: A&0 x 3 SKIN: Warm and dry.prevena dressing to chest, maría wrap to right leg HEAD: Normocephalic. EYES: No scleral icterus. No injection or drainage. NECK: Supple, trachea midline. No JVD or lymphadenopathy. CARDIOVASCULAR: Regular rate and rhythm without murmurs, gallops, or rubs. RESPIRATORY: chest tube to wall suction, no air leak , drained 230cc/ 12 hrs Breath sounds equal bilaterally. No accessory muscle use. GASTROINTESTINAL: Abdomen soft, non-tender, nondistended. MUSCULOSKELETAL: No cyanosis, or edema. BACK: Nontender without obvious deformity. No CVA tenderness. Vital Signs Date Time Temp Pulse Resp B/P Pulse Ox O2 Delivery O2 Flow Rate FiO2 07/02/16 07:22 16 07/02/16 07:06 98 Nasal Cannula 4.00 07/02/16 04:00 98.6 55 18 107/49 96 07/02/16 03:00 18 07/02/16 00:00 98.4 62 18 114/56 92 07/01/16 23:00 54 07/01/16 21:22 18 07/01/16 20:00 99.2 57 18 145/67 97 07/01/16 19:00 54 07/01/16 17:25 98.6 07/01/16 16:15 95 Nasal Cannula 2.00 07/01/16 15:00 55 07/01/16 15:00 97.8 52 16 124/59 97 07/01/16 14:31 98.6 1/19/17 14:05 100 Nasal Cannula 4 07/01/16 14:05 100 Nasal Cannula 4.00 07/01/16 14:00 97.8 71 16 124/59 97 07/01/16 13:29 Nasal Cannula 40 07/01/16 13:28 98 40 07/01/16 13:25 97.8 45 11 98/47 97 07/01/16 13:00 97.8 45 13 99/46 97 07/01/16 13:00 98.6 07/01/16 12:45 97 60 07/01/16 12:37 97.9 43 12 99/54 97 Labs: Laboratory Tests Test 07/02/16 04:25 White Blood Count 12.4 TH/MM3 (4.0-11.0) Red Blood Count 3.83 MIL/MM3 (4.50-5.90) Hemoglobin 11.6 GM/DL (13.0-17.0) Hematocrit 34.0 % (39.0-51.0) Mean Corpuscular Volume 88.8 FL (80.0-100.0) Mean Corpuscular Hemoglobin 30.2 PG (27.0-34.0) Mean Corpuscular Hemoglobin 34.0 % Concent (32.0-36.0) Red Cell Distribution Width 13.9 % (11.6-17.2) Platelet Count 212 TH/MM3 (150-450) Mean Platelet Volume 7.5 FL (7.0-11.0) Sodium Level 139 MEQ/L (136-145) Potassium Level 4.0 MEQ/L (3.5-5.1) Chloride Level 107 MEQ/L (98-107) Carbon Dioxide Level 25.5 MEQ/L (21.0-32.0) Anion Gap 7 MEQ/L (5-15) Blood Urea Nitrogen 16 MG/DL (7-18) Creatinine 0.76 MG/DL (0.60-1.30) Estimat Glomerular Filtration 103 ML/MIN Rate (>89) Random Glucose 89 MG/DL (74-106) Calcium Level 7.9 MG/DL (8.5-10.1) Magnesium Level 2.4 MG/DL (1.5-2.5) Result Diagram: 07/02/1642407/02/16424 Telemetry: sinus alejandra (1) Unstable angina (2) S/P CABG x 3 Plan: on statin, BB, ASA plavix pulm toileting nebs ezpap, acapella consult CM for HHC (3) Hypertension Plan: stable at this time (4) Hyperlipidemia Plan: on statin (5) Obesity Plan: will need weight loss program in 4-6 weeks (6) Obstructive sleep apnea Plan: home CPAP machine at night (7) BMI 40.0-44.9, adult Magnolia Marrero Jul 02, 2016 09:33
[2016-07-02] MEDS ORDERED: BISACODYL 10 MG SUPP RECTAL PRN (09:45)
[2016-07-02] MEDS ORDERED: DOCUSATE SODIUM 100 MG CAP PO SCH (09:45)
[2016-07-02] MEDS ORDERED: DEXTROSE 50% IN WATER 50 ML VIAL(D50) IV PRN (09:45)
[2016-07-02] MEDS ORDERED: SOD PHOSPHATE/SOD BIPHOSPHATE (ADULT) ENEMA 133ML RECTAL PRN (09:45)
[2016-07-02] MEDS ORDERED: GLUCAGON 1 MG/ML VIAL OTHER PRN (09:45)
--- NOTE | 2016-07-02 09:58 | HHI.FF ---
Face to Face Verification Diagnosis: (1) Unstable angina (2) Obstructive sleep apnea (3) Hyperlipidemia (4) Hypertension (5) Obesity (6) S/P CABG x 3 Physical Therapy Order: Evaluate and Treat Home Health Nursing Order: Signs/symptoms of disease process Wound care and dressing changes Instructions: Heart and Vascular Surgery patients *Special attention to sternal dressing Mandatory frequency Assess and evaluation, 4 days in a row The next week 3X week 2 times a week for 4 weeks 1 time a week for 5 weeks Schedule Heart and Vascular patients for full 60 day certification period Initial visit Review Open Heart Surgery Discharge Instructions (Sternal precautions, Activity, Elastic hose, Incision care, Driving, Incentive spirometry, Smoking, [place], Work and other) Need Betadine to paint incision Medication reconciliation Importance of follow up care/ check on appointments Make calendar record temperature daily When to call [facility] nurse, review instructions, phone list Incentive Spirometry, demonstration Visit 1- Begin discharge instruction for patient family and/ or caregiver using teach back method- Signs and symptoms of infection Disease characteristics Medicines and side effects Foods and nutrition/ appetite Infection control/ hand washing/ hygiene Visit 2- Continue teaching Discharge instructions- include additional information on smoking cessation , sternal dressing (sternal vac) Visit 3- Continue teaching- Cough and deep breathing, incision monitoring. Choose my plate Visit 4- Continue teaching- Discuss limitations Discuss how they are feeling Discuss progress toward goals Remaining visits- continue teaching and monitoring Incentive spirometry Q1 hr x 10, while awake, also use acapella device hourly whole awake Sternal Breast Bone Precautions: NO pushing or pulling, ( pt must use sternal pillow to support chest with all activities and with coughing ( takes up to 3 months breast bone to heal ) Daily incision care: ok to shower daily, no tub bath. Wash all incisions with liquid dial soap, clean wash cloth to each site, rinse and pat dry. Observe for any signs of infection, such as drainage which is dark yellow, bailey, green or foul smelling. Immediately report to the surgeon any drainage from the chest incision, or legs, and for any abnormal drainage from the chest tube sites. Notify surgeon if any temp >101.5 degrees F. When specialty dressing removed/ or if you do not have one, continue to shower daily as above, then rinse and pat incision dry and paint with betadine daily x 5 days. Allow steri strips to fall off if you have any. Avoid lotions, creams, salves, oils, etc. for the first month Please see attached forms for additional instructions regarding post Open Heart specialty wound vacuum dressings. MARLIN or Prevena , Dressing to be removed by Nursing staff on _07/08/[address] Gan patients , please obtain CBC, BMP, PA & Lat CXR in 2 weeks, results to Dr. Gan ( prescription will be given) ( ) (Tele: [phone]) , Valve replacement pts will need 2decho in 2 weeks with results to Dr. Gan . 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 Coe & Dr. Gan), After Hours / Nights (5pm -8am) Weekends and Holidays Please call [facility] ([facility]) Charge Nurse I have seen patient Gary Romero on 07/02/16. My clinical findings support the need for the requested home health care services because: Deconditioned w/ increased weakness I certify that my clinical findings support that this patient is homebound because: Post-op weakness PREVENA Single Use Negative Wound Therapy System Caregiver Instruction Sheet 1. A Prevena dressing system was applied to the chest incision during surgery , to promote wound healing. It works via a suction device (negative pressure wound therapy) to remove low to moderate levels of exudate (drainage) and infectious materials. We recommend that the device stay in place for up to seven days, from day of surgery. 2. Day of Surgery_07/01/16 Day of Removal __07/08/16 3. The dressing should only be removed by a health ostomy care nurse. Please arrange removal of device to coincide with Home Health visit and or with Nursing staff at Rehab 4. If skin reddening or irritation of skin occurs, or excessive drainage, please notify the Cardiovascular Surgeons office at [phone]. 5. Light showering is permissible; however the pump should be disconnected and placed in safe location, where it will not get wet. The dressing should not be exposed to direct spray or submerged in water. No bath tub / shower only. Ensure the end of the tubing attached to the dressing is facing down so that water does not enter the top of the tube. 6. To remove Prevena dressing: press purple button to turn off device / remove the suction. Then disconnect the tubing from the pump. The fixation strips should be stretched away from the skin and the dressing lifted at one corner and peeled back until it has been fully removed. 7. After removal, it is ok to shower daily using liquid dial soap and clean wash cloth, rinse and pat dry, and leave incision open to air dry. For any concerns regarding Prevena dressing, and or wounds, please contact Olesya Gutierrez, patient navigator at [phone] or notify the Cardiovascular Surgeons office at [phone]. Magnolia Marrero Jul 02, 2016 09:57
[2016-07-02] MEDS ORDERED: PILL SPLITTER OTHER PRN (10:30)
[2016-07-02] MEDS: PRAVASTATIN SOD 20 MG TAB PO SCH (10:35)
[2016-07-02] MEDS: INSULIN ASPART SUPPLEMENTAL SCALE SQ SCH ×4 (10:58→22:05)
[2016-07-02] MEDS: RESP: ALBUTEROL 2.5 MG/IPRATROPIUM 0.5 MG NEB (SCH) NEB ×2 (12:52→20:40)
[2016-07-02] MEDS: buPROPion HCL 100 MG SUSTAINED RELEASE TAB PO SCH ×2 (13:18→21:10)
[2016-07-02] MEDS: METOCLOPRAMIDE HCL 10 MG/2 ML VIAL IV SCH ×2 (14:00→21:14)
[2016-07-02] MEDS: SENNOSIDES 8.6 MG TAB PO SCH (21:00)
[2016-07-02] MEDS: METOPROLOL TARTRATE 25 MG TAB PO SCH (21:10)
[2016-07-02] MEDS: DOCUSATE SODIUM 100 MG CAP PO SCH (21:11)
--- NOTE | 2016-07-02 22:40 | EKG ---
Date Performed: 07/02/2016 Time Performed: 05:02:44 PTAGE: 65 years EKG: Sinus rhythm with PAC(s). Inferior infarct - age undetermined Abnormal ECG NO PREVIOUS TRACING DOCTOR: Corby Ghotra Interpretating Date/Time 07/02/2016 22:39:03
[2016-07-03] VITALS (24 sets, daily range): BP systolic 102–124; BP diastolic 56–65; PULSE 57–76; RESP 18; TEMP 98.7–99.4; O2SAT 92–98
[2016-07-03] MEDS: oxyCODONE/ACETAMINOPHEN 5 MG/325 MG TAB PO PRN ×5 (00:21→21:22)
[2016-07-03] MEDS: ceFAZolin 2 GM PREMIX 50 ML IV SCH (00:23)
[2016-07-03] MEDS: INSULIN ASPART SUPPLEMENTAL SCALE SQ SCH ×5 (02:00→21:00)
[2016-07-03 06:21] LABS: BICARBONATE 28.2 MEQ/L (21.0-32.0); MAGNESIUM 2.3 MG/DL (1.5-2.5); POTASSIUM 4.1 MEQ/L (3.5-5.1)
[2016-07-03] MEDS: PANTOPRAZOLE SOD 40 MG DELAYED RELEASE TAB PO SCH (06:32)
[2016-07-03] MEDS: METOCLOPRAMIDE HCL 10 MG/2 ML VIAL IV SCH ×2 (06:32→14:00)
[2016-07-03 06:55] LABS: AUTOMATED NEUTROPHIL # 8.1 TH/MM3 (1.8-7.7); BASOPHIL % 0.4 % (0.0-2.0); EOSINOPHIL # 0.4 TH/MM3 (0-0.4); EOSINOPHIL % 3.7 % (0.0-4.0); HEMATOCRIT 31.8 % (39.0-51.0); HEMO FLAGS DIFF FINAL; LYMPH % 12.9 % (9.0-44.0); LYMPHOCYTE # 1.5 TH/MM3 (1.0-4.8); MEAN CELL VOLUME 90.7 FL (80.0-100.0); MEAN CORPUSCULAR HEMOGLOBIN 30.2 PG (27.0-34.0); MEAN CORPUSCULAR HGB CONC 33.4 % (32.0-36.0); MONO % 11.6 % (0.0-8.0); NEUT % 71.4 % (16.0-70.0); PLATELET COUNT 175 TH/MM3 (150-450); RED CELL DISTRIBUTION WIDTH 14.2 % (11.6-17.2); WHITE BLOOD COUNT 11.4 TH/MM3 (4.0-11.0)
[2016-07-03] MEDS: RESP: ALBUTEROL 2.5 MG/IPRATROPIUM 0.5 MG NEB (SCH) NEB ×3 (07:49→20:13)
[2016-07-03] MEDS: MAGNESIUM HYDROXIDE SUSP 30 ML CUP PO SCH (08:23)
[2016-07-03] MEDS: PRAVASTATIN SOD 20 MG TAB PO SCH (08:23)
[2016-07-03] MEDS: METOPROLOL TARTRATE 25 MG TAB PO SCH ×2 (08:23→21:22)
[2016-07-03] MEDS: MULTIVITAMINS/MINERALS THERAPEUTIC TAB PO SCH (08:23)
[2016-07-03] MEDS: POLYETHYLENE GLYCOL 17 GM PKG PO SCH (08:23)
--- NOTE | 2016-07-03 08:29 | PD.CAR.PN ---
CVT Progress Note Subjective/Hospital Course: 65/ male hx/ recent chest pain , underwent cardiac cath by Dr Huffman, multi vessel disease, EF 50-60%, went home and admitted for elective CABG PMH: obesity, LAMONTE ( CPAP at home) narcolepsy, HTN, HLP surgery: Off-pump Coronary Artery Bypass Grafting x 4 with left internal mammary artery (BAUMAN) to left anterior descending (LAD), reverse saphenous vein graft to Diagonal 1, reverse saphenous vein graft to the OM1, reverse saphenous vein graft to the Right Ventricular Branch of the RCA, Right Leg Endoscopic Vein [place] 07/01 07/02 extubated after surgery, on nasal cannula chest tube drained 230/ 12 hrs start low dose BB, ASA, Plavix and statin stable to transfer to stepdown unit 07/03 Doing well Ambulating with PT Likely D/C CT tomorrow Discharge planning Objective: Vital Signs Date Time Temp Pulse Resp B/P Pulse Ox O2 Delivery O2 Flow Rate FiO2 07/03/16 08:11 66 07/03/16 07:51 64 07/03/16 07:51 98 Nasal Cannula 2.00 07/03/16 07:50 99.4 64 18 102/57 92 07/03/16 06:00 66 07/03/16 05:00 58 07/03/16 04:00 62 07/03/16 03:00 99.1 62 18 124/59 92 07/03/16 03:00 57 07/02/16 23:00 99.4 66 20 94/55 95 07/02/16 23:00 57 07/02/16 20:47 Nasal Cannula 2.00 07/02/16 19:00 99.5 64 28 135/63 95 Arterial Line 07/02/16 19:00 68 07/02/16 15:00 58 07/02/16 15:00 98.5 58 16 135/75 97 07/02/16 14:19 18 07/02/16 11:00 64 07/02/16 11:00 99.1 64 16 124/69 97 07/02/16 09:04 16 Labs: Laboratory Tests Test 07/03/16 05:17 White Blood Count 11.4 TH/MM3 (4.0-11.0) Red Blood Count 3.50 MIL/MM3 (4.50-5.90) Hemoglobin 10.6 GM/DL (13.0-17.0) Hematocrit 31.8 % (39.0-51.0) Mean Corpuscular Volume 90.7 FL (80.0-100.0) Mean Corpuscular Hemoglobin 30.2 PG (27.0-34.0) Mean Corpuscular Hemoglobin 33.4 % Concent (32.0-36.0) Red Cell Distribution Width 14.2 % (11.6-17.2) Platelet Count 175 TH/MM3 (150-450) Mean Platelet Volume 7.8 FL (7.0-11.0) Neutrophils (%) (Auto) 71.4 % (16.0-70.0) Lymphocytes (%) (Auto) 12.9 % (9.0-44.0) Monocytes (%) (Auto) 11.6 % (0.0-8.0) Eosinophils (%) (Auto) 3.7 % (0.0-4.0) Basophils (%) (Auto) 0.4 % (0.0-2.0) Neutrophils # (Auto) 8.1 TH/MM3 (1.8-7.7) Lymphocytes # (Auto) 1.5 TH/MM3 (1.0-4.8) Monocytes # (Auto) 1.3 TH/MM3 (0-0.9) Eosinophils # (Auto) 0.4 TH/MM3 (0-0.4) Basophils # (Auto) 0.0 TH/MM3 (0-0.2) CBC Comment DIFF FINAL Differential Comment Sodium Level 139 MEQ/L (136-145) Potassium Level 4.1 MEQ/L (3.5-5.1) Chloride Level 106 MEQ/L (98-107) Carbon Dioxide Level 28.2 MEQ/L (21.0-32.0) Anion Gap 5 MEQ/L (5-15) Blood Urea Nitrogen 15 MG/DL (7-18) Creatinine 0.82 MG/DL (0.60-1.30) Estimat Glomerular Filtration 94 ML/MIN (>89) Rate Random Glucose 112 MG/DL (74-106) Calcium Level 7.8 MG/DL (8.5-10.1) Magnesium Level 2.3 MG/DL (1.5-2.5) Result Diagram: 07/03/16 0517 07/03/16 0517 (1) Unstable angina (2) S/P CABG x 3 Plan: on statin, BB, ASA plavix pulm toileting nebs ezpap, acapella consult CM for HHC (3) Hypertension Plan: stable at this time (4) Hyperlipidemia Plan: on statin (5) Obesity Plan: will need weight loss program in 4-6 weeks (6) Obstructive sleep apnea Plan: home CPAP machine at night (7) BMI 40.0-44.9, adult Lucía Coe MD Jul 03, 2016 08:29
[2016-07-03] MEDS: DOCUSATE SODIUM 100 MG CAP PO SCH ×2 (08:40→21:21)
[2016-07-03] MEDS: buPROPion HCL 100 MG SUSTAINED RELEASE TAB PO SCH ×2 (08:40→21:22)
[2016-07-03] MEDS: MUPIROCIN 2% OINT 22 GM TUBE EACH NARE SCH ×2 (08:41→21:00)
[2016-07-03] MEDS: ASPIRIN 81 MG CHEW TAB PO SCH (08:41)
[2016-07-03] MEDS: CLOPIDOGREL 75 MG TAB PO SCH (08:41)
[2016-07-03] MEDS: AMIODARONE 200 MG TAB PO SCH ×2 (08:41→21:22)
[2016-07-03] MEDS: SODIUM CHLORIDE 0.9% FLUSH 5 ML FLUSH IV FLUSH SCH ×2 (08:42→21:23)
[2016-07-03] MEDS: SENNOSIDES 8.6 MG TAB PO SCH (21:00)
[2016-07-04] VITALS (26 sets, daily range): BP systolic 112–144; BP diastolic 57–77; PULSE 53–72; RESP 18; TEMP 98.4–100.1; O2SAT 92–98
[2016-07-04] MEDS: PANTOPRAZOLE SOD 40 MG DELAYED RELEASE TAB PO SCH (03:27)
[2016-07-04] MEDS: oxyCODONE/ACETAMINOPHEN 5 MG/325 MG TAB PO PRN ×3 (03:28→21:28)
[2016-07-04] MEDS: INSULIN ASPART SUPPLEMENTAL SCALE SQ SCH ×4 (05:29→21:03)
[2016-07-04] MEDS: RESP: ALBUTEROL 2.5 MG/IPRATROPIUM 0.5 MG NEB (SCH) NEB ×2 (07:32→11:36)
[2016-07-04] MEDS: MUPIROCIN 2% OINT 22 GM TUBE EACH NARE SCH ×2 (09:00→21:00)
[2016-07-04] MEDS: SODIUM CHLORIDE 0.9% FLUSH 5 ML FLUSH IV FLUSH SCH ×2 (09:00→21:00)
[2016-07-04] MEDS: MAGNESIUM HYDROXIDE SUSP 30 ML CUP PO SCH (09:25)
[2016-07-04] MEDS: METOPROLOL TARTRATE 25 MG TAB PO SCH ×2 (09:25→21:02)
[2016-07-04] MEDS: POLYETHYLENE GLYCOL 17 GM PKG PO SCH (09:25)
[2016-07-04] MEDS: CLOPIDOGREL 75 MG TAB PO SCH (09:26)
[2016-07-04] MEDS: DOCUSATE SODIUM 100 MG CAP PO SCH ×2 (09:26→21:07)
[2016-07-04] MEDS: PRAVASTATIN SOD 20 MG TAB PO SCH (09:26)
[2016-07-04] MEDS: MULTIVITAMINS/MINERALS THERAPEUTIC TAB PO SCH (09:26)
[2016-07-04] MEDS: AMIODARONE 200 MG TAB PO SCH ×2 (09:27→21:02)
[2016-07-04] MEDS: ASPIRIN 81 MG CHEW TAB PO SCH (09:27)
[2016-07-04] MEDS: buPROPion HCL 100 MG SUSTAINED RELEASE TAB PO SCH ×2 (09:27→21:07)
--- NOTE | 2016-07-04 10:51 | PD.CAR.PN ---
CVT Progress Note Subjective/Hospital Course: 65/ male hx/ recent chest pain , underwent cardiac cath by Dr Huffman, multi vessel disease, EF 50-60%, went home and admitted for elective CABG PMH: obesity, LAMONTE ( CPAP at home) narcolepsy, HTN, HLP surgery: Off-pump Coronary Artery Bypass Grafting x 4 with left internal mammary artery (BAUMAN) to left anterior descending (LAD), reverse saphenous vein graft to Diagonal 1, reverse saphenous vein graft to the OM1, reverse saphenous vein graft to the Right Ventricular Branch of the RCA, Right Leg Endoscopic Vein [place] 07/01 07/02 extubated after surgery, on nasal cannula chest tube drained 230/ 12 hrs start low dose BB, ASA, Plavix and statin stable to transfer to stepdown unit 07/03 Doing well Ambulating with PT Likely D/C CT tomorrow Discharge planning 07/04 D/C CT Discharge home in am Objective: Vital Signs Date Time Temp Pulse Resp B/P Pulse Ox O2 Delivery O2 Flow Rate FiO2 07/04/16 08:15 98.8 67 18 133/69 98 07/04/16 08:15 Nasal Cannula 2.00 07/04/16 07:33 97 Nasal Cannula 2.00 07/04/16 05:00 56 07/04/16 04:00 98.9 65 18 112/57 92 07/04/16 04:00 61 07/04/16 03:00 54 07/04/16 02:00 53 07/04/16 01:00 55 07/04/16 00:00 61 07/04/16 00:00 98.4 63 18 130/64 95 07/03/16 23:00 60 07/03/16 22:00 72 07/03/16 21:00 76 07/03/16 20:13 97 Nasal Cannula 2.00 07/03/16 20:00 71 07/03/16 20:00 98.7 71 18 117/56 94 07/03/16 20:00 Nasal Cannula 2.00 07/03/16 19:00 63 07/03/16 18:34 65 07/03/16 17:00 68 07/03/16 16:00 65 07/03/16 15:00 99.0 69 18 120/65 96 07/03/16 15:00 69 07/03/16 14:00 65 07/03/16 13:00 70 07/03/16 12:12 65 07/03/16 11:54 99.0 65 18 119/58 92 07/03/16 11:00 64 Result Diagram: 07/03/1651607/03/16516 (1) Unstable angina (2) S/P CABG x 3 Plan: on statin, BB, ASA plavix pulm toileting nebs ezpap, acapella consult CM for C (3) Hypertension Plan: stable at this time (4) Hyperlipidemia Plan: on statin (5) Obesity Plan: will need weight loss program in 4-6 weeks (6) Obstructive sleep apnea Plan: home CPAP machine at night (7) BMI 40.0-44.9, adult Lucía Coe MD Jul 04, 2016 10:51
[2016-07-04] MEDS: SENNOSIDES 8.6 MG TAB PO SCH (21:02)
[2016-07-05] VITALS (12 sets, daily range): BP systolic 130–135; BP diastolic 63–71; PULSE 51–64; RESP 18; TEMP 98.3–98.6; O2SAT 93–97
[2016-07-05] MEDS: oxyCODONE/ACETAMINOPHEN 5 MG/325 MG TAB PO PRN ×3 (03:51→13:15)
[2016-07-05] MEDS: PANTOPRAZOLE SOD 40 MG DELAYED RELEASE TAB PO SCH (06:00)
[2016-07-05] MEDS: INSULIN ASPART SUPPLEMENTAL SCALE SQ SCH ×2 (06:15→11:00)
[2016-07-05] MEDS: MAGNESIUM HYDROXIDE SUSP 30 ML CUP PO SCH (07:31)
[2016-07-05] MEDS: POLYETHYLENE GLYCOL 17 GM PKG PO SCH (07:32)
[2016-07-05] MEDS: METOPROLOL TARTRATE 25 MG TAB PO SCH (08:00)
[2016-07-05] MEDS: AMIODARONE 200 MG TAB PO SCH (08:00)
[2016-07-05] MEDS: ASPIRIN 81 MG CHEW TAB PO SCH (08:00)
[2016-07-05] MEDS: MULTIVITAMINS/MINERALS THERAPEUTIC TAB PO SCH (08:01)
[2016-07-05] MEDS: DOCUSATE SODIUM 100 MG CAP PO SCH (08:01)
[2016-07-05] MEDS: CLOPIDOGREL 75 MG TAB PO SCH (08:01)
[2016-07-05] MEDS: PRAVASTATIN SOD 20 MG TAB PO SCH (08:07)
[2016-07-05] MEDS: SODIUM CHLORIDE 0.9% FLUSH 5 ML FLUSH IV FLUSH SCH (09:00)
[2016-07-05] MEDS: buPROPion HCL 100 MG SUSTAINED RELEASE TAB PO SCH (10:42)
[2016-07-05] MEDS ORDERED: THERM PO (11:50)
[2016-07-05] MEDS ORDERED: AMIO200T PO (11:50)
[2016-07-05] MEDS ORDERED: DOCU1CAP39 PO (11:50)
[2016-07-05] MEDS ORDERED: PLAV75TA29 PO (11:50)
[2016-07-05] MEDS ORDERED: POTA-163 PO (11:51)
[2016-07-05] MEDS ORDERED: FURO1TAB60 PO (11:51)
[2016-07-05] MEDS ORDERED: PERC5TAB12 PO (11:58)
--- NOTE | 2016-07-05 12:11 | HHI.DS ---
Discharge Summary Admission Date Jul 01, 2016 at 05:32 Discharge Date: Jul 05, 2016 Admitting Diagnosis chest pain, ,multivessel CAD (1) S/P CABG x 4 Diagnosis: Secondary (2) Unstable angina Diagnosis: Principal (3) Hyperlipidemia Diagnosis: Principal (4) Hypertension Diagnosis: Principal (5) Obstructive sleep apnea Diagnosis: Principal (6) Obesity Diagnosis: Principal (7) BMI 40.0-44.9, adult Diagnosis: Principal Procedures 07/01 Off-pump Coronary Artery Bypass Grafting x 4 with left internal mammary artery (BAUMAN) to left anterior descending (LAD), reverse saphenous vein graft to Diagonal 1, reverse saphenous vein graft to the OM1, reverse saphenous vein graft to the Right Ventricular Branch of the RCA, Right Leg Endoscopic Vein [place] Brief History 65/ male hx/ recent chest pain , underwent cardiac cath by Dr Huffman, multi vessel disease, EF 50-60%, went home and admitted for elective CABG PMH: obesity, LAMONTE ( CPAP at home) narcolepsy, HTN, HLP surgery: Off-pump Coronary Artery Bypass Grafting x 4 with left internal mammary artery (BAUMAN) to left anterior descending (LAD), reverse saphenous vein graft to Diagonal 1, reverse saphenous vein graft to the OM1, reverse saphenous vein graft to the Right Ventricular Branch of the RCA, Right Leg Endoscopic Vein [place] 07/01 CBC/BMP: 07/03/16 0517 07/03/16 0517 Significant Findings Laboratory Tests Test 07/03/16 05:17 White Blood Count 11.4 TH/MM3 (4.0-11.0) Red Blood Count 3.50 MIL/MM3 (4.50-5.90) Hemoglobin 10.6 GM/DL (13.0-17.0) Hematocrit 31.8 % (39.0-51.0) Neutrophils (%) (Auto) 71.4 % (16.0-70.0) Monocytes (%) (Auto) 11.6 % (0.0-8.0) Neutrophils # (Auto) 8.1 TH/MM3 (1.8-7.7) Monocytes # (Auto) 1.3 TH/MM3 (0-0.9) Random Glucose 112 MG/DL (74-106) Calcium Level 7.8 MG/DL (8.5-10.1) Imaging Last Impressions Chest X-Ray 07/02/16 0500 Signed Impressions: Service Date/Time: Saturday, July 02, 2016 05:08 - CONCLUSION: Slight left lung base consolidation. Nilo Velazquez MD PE at Discharge GENERAL: SKIN: Warm and dry./ sternal incision intact and well approximated to chest , leg incision intact HEAD: Normocephalic. EYES: No scleral icterus. No injection or drainage. NECK: Supple, trachea midline. No JVD or lymphadenopathy. CARDIOVASCULAR: Regular rate and rhythm without murmurs, gallops, or rubs. mild edema RESPIRATORY: Breath sounds equal bilaterally. No accessory muscle use. GASTROINTESTINAL: Abdomen soft, non-tender, nondistended. MUSCULOSKELETAL: No cyanosis, or edema. BACK: Nontender without obvious deformity. No CVA tenderness. Hospital Course 07/02 extubated after surgery, on nasal cannula chest tube drained 230/ 12 hrs start low dose BB, ASA, Plavix and statin stable to transfer to stepdown unit 07/03 Doing well Ambulating with PT Likely D/C CT tomorrow Discharge planning 07/04 D/C CT Discharge home in am 07/05 pt doing well, on room air, remains in NSR mild edema, will dc on lasix /K+ x 5 days , then resume HCTZ on BB, ASA plavix, statin dietary consult prior to dc stable for dc home today Pt Condition on Discharge: Good Discharge Disposition: Disch w/ Home Health Serv Discharge Instructions DIET: Follow Instructions for: Diabetic Diet Activities you can perform: Full Weight Bearing, Shower Only-No Bath Activities to avoid: Strenuous Activity, Driving Additional Activity Instructio: no lifting <8lbs or gallon of milk Follow up Referrals: Appointment for Follow Up - 07/16/16 with Sofía Gan MD Cardiology - 07/30/16 with Linda Huffman MD PCP Follow-up - 07/16/16 with Jose G Patel Jr., MD New Medications: Furosemide (Lasix) 40 Mg Tab 40 MG PO DAILY edema #5 Ref 1 TAB Potassium Chloride ER (Potassium Chloride ER) 20 Meq Tab 20 MEQ PO DAILY Electrolyte Replacement #5 Ref 1 TAB Amiodarone (Amiodarone) 200 Mg Tab 200 MG PO Q12HR heart rhythm #28 Ref 0 TAB Clopidogrel (Plavix) 75 Mg Tab 75 MG PO DAILY Blood Clot Prevention #30 Ref 2 TAB Docusate Sodium (Dok) 100 Mg Cap 100 MG PO BID Constipation #60 CAP Multiple Vitamins W/ Minerals (Thera M Plus) 1 Tab 1 TAB PO DAILY multi vitamin #30 TAB Continued Medications: Aspirin (Aspirin) 81 Mg Chew 81 MG CHEW DAILY Ref 0 TAB Atenolol (Atenolol) 25 Mg Tab 25 MG PO DAILY HOLD FOR HEARTRATE LESS THAN 50 Blood Pressure Management #100 TAB Bupropion HCl ER 12 HR (Wellbutrin SR 12 HR) 200 Mg Tab 200 MG PO BID Control Depression #180 Ref 0 TAB Loratadine (Loratadine) 10 Mg Tab 10 MG PO DAILY Allergy Management Ref 0 TAB Lorazepam (Ativan) 1 Mg Tab 1 MG PO BID PRN ANXIETY AND/OR AGITATION #90 Ref 0 TAB Methylphenidate IR (Methylphenidate IR) 5 Mg Tab 5 MG PO BIDAC #60 Ref 0 TAB Multiple Vitamin (Multiple Vitamin) 1 Tab 1 TAB PO DAILY Nutritional Supplement Ref 0 TAB Oxycodone-Acetaminophen (Percocet) 5-325 mg Tab 1 TAB PO Q6H PRN PAIN Ref 0 TAB Pravastatin (Pravastatin) 20 Mg Tab 1 TAB PO DAILY Cholesterol Management #90 Ref 0 TAB Discontinued Medications: Amlodipine (Amlodipine) 5 Mg Tab 1 TAB PO DAILY Blood Pressure Management #90 Ref 0 TAB Hydrochlorothiazide (Hydrochlorothiazide) 25 Mg Tab 25 MG PO DAILY #90 Ref 0 TAB Nitroglycerin SL (Nitrostat SL) 0.4 Mg Subl 0.4 MG SL Q5M PRN ANGINA #30 CAP Vardenafil (Levitra) 20 Mg Tab 20 MG PO DAILY PRN ERECTILE DYSFUNCTION #12 Ref 0 TAB Magnolia Marrero Jul 05, 2016 12:11
[2016-07-13] MEDS ORDERED: HYDR25TA5 PO (15:20)
[2016-07-13] MEDS ORDERED: ATEN25TA PO (15:20)
[2016-09-13] MEDS ORDERED: HYDR25TA5 PO (10:31)
[2016-09-27] MEDS ORDERED: PLAV75TA29 PO (12:04)
[2016-11-15] MEDS ORDERED: LORA-474 PO (12:17)
[2016-11-15] MEDS ORDERED: PRAV40TA2 PO (12:17)
[2016-11-15] MEDS ORDERED: HYDR25TA5 PO (12:17)
[2016-11-15] MEDS ORDERED: LEVI10TA PO (12:20)
== END 2016-07-05 13:49 | disposition home or self-care (01) | DRG 236 ==
LOC: HSDI 07-01 05:32 → HCVR 07-01 12:41 → HCPC 07-02 16:52
PROVIDERS: ADMIT Thoracic Surgery (Cardiothoracic Vascular Surgery); ATTEND Thoracic Surgery (Cardiothoracic Vascular Surgery)
PROC: 06BP4ZZ Excision of Right Saphenous Vein, Percutaneous Endoscopic Approach (ICD-10-PCS; 2016-07-01)
PROC: 02100Z9 Bypass Coronary Artery, One Artery from Left Internal Mammary, Open Approach (ICD-10-PCS; principal; 2016-07-01 07:04)
PROC: 021209W Bypass Coronary Artery, Three Arteries from Aorta with Autologous Venous Tissue, Open Approach (ICD-10-PCS; 2016-07-01 07:04)
DX: I25.110 Atherosclerotic heart disease of native coronary artery with unstable angina pectoris (principal); Z68.41 Body mass index [BMI] 40.0-44.9, adult; I25.82 Chronic total occlusion of coronary artery; I10 Essential (primary) hypertension; E66.9 Obesity, unspecified; E78.5 Hyperlipidemia, unspecified; G47.419 Narcolepsy without cataplexy; G47.33 Obstructive sleep apnea (adult) (pediatric); Z87.891 Personal history of nicotine dependence; Z82.49 Family history of ischemic heart disease and other diseases of the circulatory system
CPT/HCPCS: 36430; 71010; 76937; 80048; 81001; 82948; 83036; 83735; 85014; 85025; 85027; 85610; 85730; 86850; 86900; 86901; 86920; 87641; 93005; 93458; 93880; 93970; 93998; 94002; 94010; 94150; 94640; 94664; 94667; 94668; C1768; C1769; C1893; C9399; J0131; J0690; J1644; J1815; J1817; J1885; J2250; J2440; J2720; J2765; J3010; J3370; J3475; P9016; Q9967